=== PATIENT | female | born 1940 | race American Indian/Alaskan Native ===

== ENCOUNTER 2016-08-05 02:34 | Emergency (ER) | payer MEDICARE ==
[2016-08-05] MEDS ORDERED: CATAPRES PO ONE (03:12)
--- NOTE | 2016-08-05 03:29 | Emergency Department Report ---
HPI - General Time Seen by Provider: 08/05/16 03:02 - HPI HPI: Room 9 The patient is a 75-year-old female presenting with a chief complaint of blurred vision. The patient states this evening she felt nervous but then went to sleep. The patient states when she awakened this evening she had blurred vision. Patient denied ever having a headache, chest pain, shortness of breath nausea or vomiting. The patient states the blurred vision has mostly resolved but her vision is still "slightly blurry." The patient otherwise states she feels "all right." The patient has a history of hypertension and states she's been compliant with all of her blood pressure medication Location: Vision Duration: [see above] Quality: Blurry Severity: Moderate Modifying factors: [see above] Context: [see above] Mode of transportation: [not driving] ED Past Medical Hx - Past Medical History Hx Hypertension: Yes (2001) - Surgical History Past Surgical History?: No Hx Appendectomy: Yes Additional Surgical History: Hysterectomy - Family History Family history: no significant - Social History Smoking Status: Never Smoker - Medications Home Medications: Home Medications Medication Instructions Recorded Confirmed Last Taken Type Clonidine HCl [Kapvay] 0.1 mg PO BID 08/05/16 08/05/16 08/04/16 History Metoprolol [Lopressor TAB] 50 mg PO BID 08/05/16 08/05/16 08/04/16 History Pantoprazole [Protonix] 40 mg PO QDAY 08/05/16 08/05/16 08/04/16 History hydrALAZINE [Apresoline TAB] 100 mg PO TID 08/05/16 08/05/16 08/04/16 History ED Review of Systems ROS: Stated complaint: HYPERTENSION Other details as noted in HPI Comment: All other systems reviewed and negative Constitutional: denies: chills, fever Eyes: vision change ENT: denies: ear pain, throat pain Respiratory: denies: cough, shortness of breath, wheezing Cardiovascular: denies: chest pain, palpitations Endocrine: no symptoms reported Gastrointestinal: denies: abdominal pain, nausea, diarrhea Genitourinary: as per HPI Musculoskeletal: denies: back pain, joint swelling, arthralgia Skin: denies: rash, lesions Neurological: denies: headache, weakness, paresthesias Psychiatric: denies: anxiety, depression Hematological/Lymphatic: denies: easy bleeding, easy bruising Physical Exam - Physical Exam Vital Signs: Vital Signs 08/05/16 02:47 Temperature 98.3 F Pulse Rate 80 Respiratory 20 Rate Blood Pressure 209/75 [Right] O2 Sat by Pulse 100 Oximetry Physical Exam: GENERAL: The patient is well-developed well-nourished female lying on stretcher not appearing to be in acute distress. [] HEENT: Normocephalic. Atraumatic. Extraocular motions are intact. Patient has moist mucous membranes. NECK: Supple. No meningitic signs are noted. Trachea midline. CHEST/LUNGS: Clear to auscultation. There is no respiratory distress noted. HEART/CARDIOVASCULAR: Regular. There is no tachycardia. There is no gallop rub or murmur. ABDOMEN: Abdomen is soft, nontender. Patient has normal bowel sounds. There is no abdominal distention. SKIN: There is no rash. There is no edema. There is no diaphoresis. NEURO: The patient is awake, alert, and oriented. The patient is cooperative. The patient has no focal neurologic deficits. The patient has normal speech. Cranial nerves II through XII grossly intact, no drift MUSCULOSKELETAL: There is no evidence of acute injury. ED Course Vital Signs 08/05/16 02:47 Temperature 98.3 F Pulse Rate 80 Respiratory 20 Rate Blood Pressure 209/75 [Right] O2 Sat by Pulse 100 Oximetry - Consultations Consultation #1: 08/05/16 04:17 Nephrology paged- case discussed with Dr. Duggan states she will like the patient's records to look for previous creatinine and call back 08/05/16 04:[address] Duggan-states patient's last creatinine was measured in May 2014 which revealed a creatinine of 3.66. Recommends the patient follow up in the office for further evaluation ED Medical Decision Making - Lab Data Result diagrams: 08/05/16 03:32 08/05/16 03:32 Laboratory Tests 08/05/16 08/05/16 03:32 03:32 WBC 6.0 RBC 3.51 L Hgb 9.1 L Hct 28.1 L MCV 80 MCH 26 L MCHC 33 RDW 16.2 H Plt Count 363 [place] % (Auto) Potato Seed Cutter Sodium 136 L Potassium 3.4 L Chloride 94.3 L Carbon Dioxide 25 Anion Gap 20 BUN 16 Creatinine 4.0 H Estimated GFR 13 BUN/Creatinine Ratio 4.00 Glucose 102 H Calcium 8.2 L Total Creatine Kinase 136 H CK-MB (CK-2) 1.7 CK-MB (CK-2) Rel Index 1.2 Troponin T 0.026 - EKG Data -: EKG Interpreted by Me EKG shows normal: sinus rhythm Rate: normal - EKG Data When compared to previous EKG there are: previous EKG unavailable Interpretation: nonspecific ST-T wave carol ann (T-wave inversions in leads 1 and aVL) - Radiology Data Radiology results: report reviewed (CT head), image reviewed (CT head) CT head (read by radiologist) -there is no evidence of acute intracranial process. Mild atrophy - Differential Diagnosis hypertensive urgency, ICH Critical care attestation.: If time is entered above; I have spent that time in minutes in the direct care of this critically ill patient, excluding procedure time. ED Disposition Clinical Impression: Hypertension, Renal insufficiency Disposition: DC-01 TO HOME OR SELFCARE Is pt being admited?: No Does the pt Need Aspirin: No Condition: Stable Instructions: Hypertension (ED) Additional Instructions: Return to the emergency department immediately should you develop worsening symptoms, fever, inability to tolerate food or liquid or any other concerns. Referrals: TOMÁS BEST MD [Staff Physician] - [facility] Time of Disposition: 05:47
[2016-08-05 03:50] LABS: Hematocrit 28.1 % (30.3-42.9); Hemoglobin 9.1 gm/dl (10.1-14.3); Mean Corpuscular HGB Conc 33 % (30-34); Mean Corpuscular Hemoglobin 26 pg (28-32); Mean Corpuscular Volume 80 fl (79-97); Platelet Count 363 K/mm3 (140-440); Red Blood Count 3.51 M/mm3 (3.65-5.03); Red Cell Distribution Width 16.2 % (13.2-15.2)
--- NOTE | 2016-08-05 04:06 | Cat Scan Report ---
FINAL REPORT PROCEDURE: CT HEAD/BRAIN WO CON TECHNIQUE: Computerized tomography of the head was performed without contrast material. HISTORY: hypertension, blurred vision COMPARISON: No prior studies are available for comparison. FINDINGS: Skull and scalp: Normal. Paranasal sinuses: Normal. Ventricles and subarachnoid spaces: Normal. Cerebrum: No evidence of hemorrhage, acute infarction or mass. Minimal atrophy and periventricular deep white matter change.. Cerebellum and brainstem: No evidence of hemorrhage, acute infarction or mass. Vasculature: Normal. Comments: None. IMPRESSION: There is no evidence of an acute intracranial process. Mild atrophy.
[2016-08-05 04:08] LABS: Creatine Kinase MB 1.7 ng/mL (0.0-4.0)
[2016-08-05 04:09] LABS: Calcium 8.2 mg/dL (8.4-10.2); Chloride 94.3 mmol/L (98-107); Potassium 3.4 mmol/L (3.6-5.0)
[2016-08-05] MEDS ORDERED: APRESOLINE IV ONE (05:00)
[2016-08-05 05:52] LABS: Basophils % (Manual) 0 % (0.0-1.8); Blastocytes % (Manual) 0 %
[2016-08-05 06:04] VITALS: BP 167/66
[2016-08-05 06:17] LABS: Anisocytosis 1+; Diff Status Complete; Platelet Estimate Consistent w Auto
== END 2016-08-05 07:08 | disposition home or self-care (01) ==
LOC: ED 02:34
DX: I10 Essential (primary) hypertension (principal); N28.9 Disorder of kidney and ureter, unspecified; Z90.710 Acquired absence of both cervix and uterus
CPT/HCPCS: 36415; 70450; 80048; 82550; 82553; 84484; 85007; 85025; 96374; 99284; J0360

== ENCOUNTER 2016-08-05 21:34 | Inpatient (IN) | payer MEDICARE ==
[2016-08-05 22:13] LABS: Eosinophils % (Auto) 2.6 % (0.0-4.3); Hematocrit 30.4 % (30.3-42.9); Hemoglobin 9.8 gm/dl (10.1-14.3); Mean Corpuscular HGB Conc 32 % (30-34); Mean Corpuscular Volume 80 fl (79-97); Platelet Count 386 K/mm3 (140-440); Red Blood Count 3.78 M/mm3 (3.65-5.03); White Blood Count 5.9 K/mm3 (4.5-11.0)
[2016-08-05 22:14] LABS: Mean Corpuscular Hemoglobin 26 pg (28-32)
[2016-08-05 22:22] LABS: INR 1.17 (0.87-1.13)
[2016-08-05 22:23] LABS: Partial Thromboplastin Time 36.8 Sec. (24.2-36.6)
[2016-08-05 22:29] LABS: BUN/Creatinine Ratio 3.84; Calcium 8.2 mg/dL (8.4-10.2); Chloride 92.1 mmol/L (98-107); Potassium 3.9 mmol/L (3.6-5.0)
[2016-08-06] MEDS ORDERED: NITRO-BID 2% TP ONE (01:53)
[2016-08-06] MEDS ORDERED: ASPIRIN PO ONE (01:54)
--- NOTE | 2016-08-06 01:56 | Emergency Department Report ---
HPI - General Chief Complaint: Chest Pain Time Seen by Provider: 08/06/16 01:41 - HPI HPI: Room 19 The patient is 75-year-old female presenting with chief complaint of chest pain. The patient was seen by myself yesterday for hypertension and blurred vision. The patient denied chest pain at that time. Patient states this evening at 20:00 while at rest she developed substernal chest pain that was throbbing in nature. Patient states chest pain lasted approximately 2-3 hours. Patient denies shortness of breath, nausea/vomiting or diaphoresis with her chest pain. Patient states her last stress test occurred over 5 years ago and she has never had a cardiac catheterization Location: Chest Duration: [see above] Quality: Throbbing Severity: 0/10 Modifying factors: [see above] Context: [see above] Mode of transportation: [not driving] ED Past Medical Hx - Past Medical History Previous Medical History?: Yes Hx Hypertension: Yes (2001) Hx Renal Disease: Yes (DYALISIS T/ T/ SAT) - Surgical History Past Surgical History?: Yes Hx Appendectomy: Yes Additional Surgical History: Hysterectomy - Family History Family history: no significant - Social History Smoking Status: Never Smoker Substance Use Type: None - Medications Home Medications: Home Medications Medication Instructions Recorded Confirmed Last Taken Type Calcium Carbonate [Calcium] 500 mg PO DAILY 08/05/16 08/05/16 08/05/16 History Clonidine HCl [Kapvay] 0.1 mg PO BID 08/05/16 08/05/16 08/05/16 History Ferrous Sulfate [Feosol] 325 mg PO TID 08/05/16 08/05/16 08/05/16 History Fluticasone [Flonase] 1 spray NS QDAY 08/05/16 08/05/16 08/05/16 History Loratadine [Claritin] 10 mg PO DAILY 08/05/16 08/05/16 08/05/16 History Metoprolol [Lopressor TAB] 50 mg PO BID 08/05/16 08/05/16 08/05/16 History Pantoprazole [Protonix] 40 mg PO QDAY 08/05/16 08/05/16 08/05/16 History hydrALAZINE [Apresoline TAB] 100 mg PO TID 08/05/16 08/05/16 08/05/16 History ED Review of Systems ROS: Stated complaint: HIGH BP/CHEST PAIN Other details as noted in HPI Comment: All other systems reviewed and negative Constitutional: denies: chills, fever Eyes: denies: eye pain, eye discharge, vision change ENT: denies: ear pain, throat pain Respiratory: denies: cough, shortness of breath, wheezing Cardiovascular: chest pain. denies: palpitations Endocrine: no symptoms reported Gastrointestinal: denies: abdominal pain, nausea, diarrhea Genitourinary: denies: urgency, dysuria, discharge Musculoskeletal: denies: back pain, joint swelling, arthralgia Skin: denies: rash, lesions Neurological: denies: headache, weakness, paresthesias Psychiatric: denies: anxiety, depression Hematological/Lymphatic: denies: easy bleeding, easy bruising Physical Exam - Physical Exam Vital Signs: Vital Signs 08/05/16 08/05/16 08/05/16 21:50 23:29 23:30 Temperature 99.1 F Pulse Rate 75 73 73 Respiratory 18 17 13 Rate Blood Pressure 190/82 Blood Pressure [Right] O2 Sat by Pulse 98 100 Oximetry 08/05/16 08/05/16 08/05/16 23:40 23:41 23:42 Temperature Pulse Rate 72 73 73 Respiratory 13 18 Rate Blood Pressure 215/82 Blood Pressure 215/82 [Right] O2 Sat by Pulse 99 99 Oximetry 08/05/16 08/06/16 08/06/16 23:50 00:00 00:10 Temperature Pulse Rate 74 65 73 Respiratory 17 16 15 Rate Blood Pressure 215/82 179/72 179/72 Blood Pressure [Right] O2 Sat by Pulse 99 96 98 Oximetry 08/06/16 08/06/16 08/06/16 00:20 00:30 00:40 Temperature Pulse Rate 63 65 65 Respiratory 15 15 16 Rate Blood Pressure 179/72 164/62 164/62 Blood Pressure [Right] O2 Sat by Pulse 97 95 96 Oximetry 08/06/16 08/06/16 08/06/16 00:50 01:00 01:10 Temperature Pulse Rate 78 74 76 Respiratory 10 L 17 10 L Rate Blood Pressure 164/62 208/83 208/83 Blood Pressure [Right] O2 Sat by Pulse 98 96 98 Oximetry 08/06/16 08/06/16 01:20 01:30 Temperature Pulse Rate 68 67 Respiratory 15 16 Rate Blood Pressure 208/83 169/75 Blood Pressure [Right] O2 Sat by Pulse 97 94 Oximetry Physical Exam: GENERAL: The patient is well-developed well-nourished female lying on stretcher not appearing to be in acute distress. [] HEENT: Normocephalic. Atraumatic. Extraocular motions are intact. Patient has moist mucous membranes. NECK: Supple. Trachea midline CHEST/LUNGS: Clear to auscultation. There is no respiratory distress noted. HEART/CARDIOVASCULAR: Regular. There is no tachycardia. There is no gallop rub or murmur. ABDOMEN: Abdomen is soft, nontender. Patient has normal bowel sounds. There is no abdominal distention. SKIN: There is no rash. There is no edema. There is no diaphoresis. NEURO: The patient is awake, alert, and oriented. The patient is cooperative. The patient has normal speech MUSCULOSKELETAL: There is no evidence of acute injury. ED Course Vital Signs 08/05/16 08/05/16 08/05/16 21:50 23:29 23:30 Temperature 99.1 F Pulse Rate 75 73 73 Respiratory 18 17 13 Rate Blood Pressure 190/82 Blood Pressure [Right] O2 Sat by Pulse 98 100 Oximetry 08/05/16 08/05/16 08/05/16 23:40 23:41 23:42 Temperature Pulse Rate 72 73 73 Respiratory 13 18 Rate Blood Pressure 215/82 Blood Pressure 215/82 [Right] O2 Sat by Pulse 99 99 Oximetry 08/05/16 08/06/16 08/06/16 23:50 00:00 00:10 Temperature Pulse Rate 74 65 73 Respiratory 17 16 15 Rate Blood Pressure 215/82 179/72 179/72 Blood Pressure [Right] O2 Sat by Pulse 99 96 98 Oximetry 08/06/16 08/06/16 08/06/16 00:20 00:30 00:40 Temperature Pulse Rate 63 65 65 Respiratory 15 15 16 Rate Blood Pressure 179/72 164/62 164/62 Blood Pressure [Right] O2 Sat by Pulse 97 95 96 Oximetry 08/06/16 08/06/16 08/06/16 00:50 01:00 01:10 Temperature Pulse Rate 78 74 76 Respiratory 10 L 17 10 L Rate Blood Pressure 164/62 208/83 208/83 Blood Pressure [Right] O2 Sat by Pulse 98 96 98 Oximetry 08/06/16 08/06/16 01:20 01:30 Temperature Pulse Rate 68 67 Respiratory 15 16 Rate Blood Pressure 208/83 169/75 Blood Pressure [Right] O2 Sat by Pulse 97 94 Oximetry ED Medical Decision Making - Lab Data Result diagrams: 08/05/16 21:58 08/05/16 21:58 Laboratory Tests 08/05/16 08/05/16 08/05/16 21:58 21:58 21:58 WBC 5.9 RBC 3.78 Hgb 9.8 L Hct 30.4 MCV 80 MCH 26 L MCHC 32 RDW 16.0 H Plt Count 386 Lymph % (Auto) 12.2 L [place] % (Auto) 14.8 H Eos % (Auto) 2.6 Baso % (Auto) 1.0 Lymph # 0.7 L [place] # 0.9 H Eos # 0.2 Baso # 0.1 Seg Neutrophils % 69.4 Seg Neutrophils # 4.1 PT 14.8 INR 1.17 H APTT 36.8 H Sodium 134 L Potassium 3.9 Chloride 92.1 L Carbon Dioxide 24 Anion Gap 22 BUN 20 H Creatinine 5.2 H Estimated GFR 10 BUN/Creatinine Ratio 3.84 Glucose 103 H Calcium 8.2 L Troponin T 0.029 - EKG Data -: EKG Interpreted by Me EKG shows normal: sinus rhythm Rate: normal - EKG Data When compared to previous EKG there are: no significant change Interpretation: nonspecific ST-T wave carol ann (T-wave inversions in leads 1 and aVL which were also present on the EKG dated 08/05/2016 at 02:39) - Radiology Data Radiology results: image reviewed (chest x-ray) interpreted by me: Chest [id number]. No focal infiltrates, no pneumothorax - Differential Diagnosis ACS, pericarditis, GERD Critical care attestation.: If time is entered above; I have spent that time in minutes in the direct care of this critically ill patient, excluding procedure time. ED Disposition Clinical Impression: Chest pain, End stage renal disease Disposition: OP ADMIT IP TO THIS HOSP Is pt being admited?: Yes Does the pt Need Aspirin: Yes Condition: Fair Instructions: Chest Pain (ED) Referrals: PRIMARY CARE, [Primary Care Provider] - 3-5 Days Time of Disposition: 02:08 (hospitalist paged)
--- NOTE | 2016-08-06 07:26 | Admit Criteria Form ---
Admission Criteria Documentation: CHEST PAIN Clinical Indications for Admission to Inpatient Care (Place 'X' for any and all applicable criteria): Admission is indicated for chest pain and ANY ONE of the following(1)(2)(3)(4)(5 ): [ ]I. Angina with acute coronary syndrome (Also use Myocardial Infarction or Angina guideline) [ ]II. Hemodynamic instability [ ]III. Angina needing acute intervention as indicated by ALL of the following( 11)(12): [ ]a) Unstable angina is present as indicated by angina that is ANY ONE of the following: [ ]i) New onset [ ]ii) Nocturnal [ ]iii) Prolonged at rest [ ]iv) Progressive [ ]b) Angina warrants acute intervention as indicated by ANY ONE of the following: [ ]i) Recurrent angina (e.g, not responding as previously to treatment) [ ]ii) Angina at rest or with low-level activities despite initial medical therapy [ ]iii) New or presumably new ST-segment depression on ECG [ ]iv) Signs or symptoms of heart failure (eg, dyspnea, pulmonary edema) [ ]v) New or worsening mitral regurgitation [ ]vi) Hemodynamic instability [ ]vii) Dangerous arrhythmia (eg, sustained ventricular tachycardia) [ ]viii) History of percutaneous coronary intervention within 6 months [ ]ix) History of coronary artery bypass graft surgery [ ]x) KALEN risk score of 2 or greater[A] [ ]xi) History of Diabetes(14) [ ]xii) High-risk cardiac ischemia findings on noninvasive testing (e.g, echocardiogram, treadmill testing, nuclear scan) [ ]xiii) Chronic renal insufficiency (ie, estimated GFR less than 60 mL/min/1.732m) [ ]xiv) Left ventricular ejection fraction less than 40% [ ]IV. Evidence of SC (eg, cardiac biomarkers positive, ST-segment elevation on ECG) also use Myocardial Infarction Criteria Form. [ ]V. Pulmonary edema [ ]. Respiratory distress [ ]VII. Chest pain indicative of serious diagnosis other than coronary artery disease (eg, aortic dissection) [ ]VIII. Contraindications and/or Inappropriate clinical situations for Observational Care in patients with Chest Pain, when ANY ONE of the following is required: [ ]a) Patient with risk factor for pulmonary embolism, acute coronary syndrome and myocardial infarction (18) [ ]b) Patient with Pulmonary embolism require an average LOS of 4.3 days, therefore emergency department observation management is inappropriate 18,23 [ ]c) Painful condition/s in the elderly, have the highest rate of recidivism after emergency department observation management (10.8%) 20,21,22 [ ]d) Elevated cardiac biomarker requires intensive and exhaustive care (19) [ X]IX. General contraindications and/or Inappropriate clinical situations for Observational Care in patients with Chest Pain, when ANY ONE of the following is required: [ X]a) Prediction of prolongation of LOS based on ANY ONE of the following may be considered as a contraindication for observational care 2, 3, 4, 5, 6, 7, 8, 9, 10, 11 [X ]i) Age > 65 yrs. [ ]ii) Patient arriving by ambulance [ ]iii) Patient with high acuity [ ]iv) Patient requiring vital sign monitoring [ ]v) Patient on IV medication [X ]b) Systolic blood pressures 180mmHg 3,12 [ ]c) Patient with altered mental status including delirium and other alteration of consciousness, (3) [ ]d) Patient whose discharge disposition will be to a detention home or rehabilitation home should not be managed in Emergency Department Observation Unit. CMS rule requires 3 days hospital stay before such placement. 3,13 [ ]e) Patient with failure to thrive due to broad array of etiologies 3,16,17 [ ]f) Inability to ambulate 3,14 Extended stay beyond goal length of stay may be needed for (1)(28): [ ]a) Specific condition diagnosed after evaluation (eg, pulmonary embolism, aortic dissection) [ ]b) Unstable angina [ ]c) Continued suspicion of acute coronary syndrome with inability to complete needed cardiac evaluation (eg, patient clinically unable to undergo stress testing) [ ]d) Myocardial infarction (Contents from ANGINA and CHEST PAIN clinical indications for admission to inpatient care have been integrated in this form) The original [employer] content created by [employer] has been revised. The portions of the content which have been revised are identified through the use of italic text or in bold, and [employer] [facility] has neither reviewed nor approved the modified material. All other unmodified content is copyright [employer]. Please see references footnoted in the original [employer] [facility] edition 2016 Admission Criteria Met: Yes
[2016-08-06] MEDS ORDERED: ZOFRAN IV PRN (08:09)
[2016-08-06] MEDS ORDERED: SODIUM CHLORIDE FLUSH SYRINGE 10 ML IV PRN (08:09)
[2016-08-06] MEDS ORDERED: MILK OF MAGNESIA PO PRN (08:09)
[2016-08-06] MEDS ORDERED: TYLENOL PO PRN (08:09)
[2016-08-06] MEDS ORDERED: DULCOLAX PR PRN (08:09)
--- NOTE | 2016-08-06 08:45 | XRay Report ---
AP CHEST : 08/06/16 CLINICAL: Chest pain. COMPARISON:None FINDINGS: The heart is greatly enlarged. Normal pulmonary vessels. The lungs are normally expanded and clear. No tubes or lines. The bones and soft tissues are normal. IMPRESSION: Cardiomegaly but no CHF.
[2016-08-06 09:17] LABS: Creatine Kinase MB 1.8 ng/mL (0.0-4.0)
[2016-08-06] MEDS ORDERED: APRESOLINE IV PRN (09:19)
--- NOTE | 2016-08-06 09:55 | History and Physical Report ---
History of Present Illness Date of examination: 08/06/16 Date of admission: 08/06/16 Chief complaint: Chest pains History of present illness: 75-year-old -[place] female presented to the ED with non-radiating chest pain. Patient reported that her chest pain started yesterday in the midsternal area, non-radiating, dull pain 4 of 10 on scale of 0/10. Patient denied fever, chills, nausea, vomiting, shortness of breath, headache, abdominal pain. Patient's past medical history End-Stage Renal Disease on HD Wednesday//Wednesday, hypertension, appendectomy, hysterectomy. Past History Past Medical History: ESRD, hypertension Past Surgical History: appendectomy, hysterectomy Social history: lives with family, full code. denies: smoking, alcohol abuse Family history: cancer, diabetes, hypertension Medications and Allergies Allergies Allergy/AdvReac Type Severity Reaction Status Date / Time No Known Allergies Allergy Unverified 03/05/14 13:55 Home Medications Medication Instructions Recorded Confirmed Last Taken Type Calcium Carbonate [Calcium] 500 mg PO DAILY 08/05/16 08/05/16 08/05/16 History Clonidine HCl [Kapvay] 0.1 mg PO BID 08/05/16 08/05/16 08/05/16 History Ferrous Sulfate [Feosol] 325 mg PO TID 08/05/16 08/05/16 08/05/16 History Fluticasone [Flonase] 1 spray NS QDAY 08/05/16 08/05/16 08/05/16 History Loratadine [Claritin] 10 mg PO DAILY 08/05/16 08/05/16 08/05/16 History Metoprolol [Lopressor TAB] 50 mg PO BID 08/05/16 08/05/16 08/05/16 History Pantoprazole [Protonix] 40 mg PO QDAY 08/05/16 08/05/16 08/05/16 History hydrALAZINE [Apresoline TAB] 100 mg PO TID 08/05/16 08/05/16 08/05/16 History Active Meds: Active Medications Acetaminophen (Tylenol) 650 mg PO Q4H PRN PRN Reason: Pain MILD(1-3)/Fever >100.5/MOREAU Bisacodyl (Dulcolax) 10 mg [place] QDAY PRN PRN Reason: Constipation unrelieved by MOM Calcium Carbonate/Glycine (Oscal) 500 mg PO DAILY [facility] Ferrous Sulfate (Feosol) 325 mg PO TID [facility] Fluticasone Propionate (Flonase) mcg NS QDAY [facility] Hydralazine HCl (Apresoline) 20 mg IV Q6H PRN PRN Reason: for BP greater than 160 Hydralazine HCl (Apresoline) 100 mg PO TID [facility] Loratadine (Claritin) 10 mg PO DAILY [facility] Magnesium Hydroxide (Milk Of Magnesia) 30 ml PO Q4H PRN PRN Reason: Constipation Metoprolol Tartrate (Lopressor) 50 mg PO BID [facility] Miscellaneous Medication (Clonidine Hcl [Kapvay]) 0.1 mg PO BID [facility] Ondansetron HCl (Zofran) 4 mg IV Q8H PRN PRN Reason: N/V unrelieved by Reglan Pantoprazole Sodium (Protonix) 40 mg PO QDAY [facility] Sodium Chloride (Sodium Chloride Flush Syringe 10 Ml) 10 ml IV PRN PRN PRN Reason: LINE FLUSH Review of Systems Constitutional: no weight loss, no weight gain, no fever, no chills Eyes: bilateral: blurred vision Ears, nose, mouth and throat: no nasal congestion, no nasal discharge Breasts: normal Cardiovascular: chest pain, no syncope, no shortness of breath Respiratory: no cough with sputum, no congestion Gastrointestinal: no abdominal pain, no nausea, no vomiting, no diarrhea, no constipation Genitourinary Female: no dyspareunia, no urge incontinence Musculoskeletal: other (bilateral toes tingling) Integumentary: no rash, no sores, no wounds Neurological: no head injury Psychiatric: no anxiety, no suicidal ideation, no depression Endocrine: no cold intolerance Exam - Constitutional Vitals: Temp Pulse Resp BP Pulse Ox 99.1 F 71 16 181/69 97 08/05/16 21:50 08/06/16 07:50 08/06/16 07:50 08/06/16 07:50 08/06/16 07:50 General appearance: Present: no acute distress, well-nourished - EENT Eyes: Present: PERRL ENT: hearing intact, clear oral mucosa - Neck Neck: Present: supple, normal ROM - Respiratory Respiratory effort: normal Respiratory: bilateral: CTA - Cardiovascular Rhythm: regular Heart Sounds: Present: S1 & S2. Absent: rub, click - Extremities Extremities: pulses symmetrical, No edema Peripheral Pulses: within normal limits - Abdominal General gastrointestinal: Present: soft, non-tender, non-distended, normal bowel sounds Female genitourinary: Present: normal - Integumentary Integumentary: Present: clear, warm, dry - Musculoskeletal Musculoskeletal: strength equal bilaterally - Psychiatric Psychiatric: appropriate mood/affect, intact judgment & insight - Neurologic Neurologic: CNII-XII intact, moves all extremities - Allied Health Allied health notes reviewed: nursing Results - Labs CBC & Chem 7: 08/05/16 21:58 08/05/16 21:58 Labs: Laboratory Last Values WBC 5.9 K/mm3 (4.5-11.0) 08/05/16 21:58 RBC 3.78 M/mm3 (3.65-5.03) 08/05/16 21:58 Hgb 9.8 gm/dl (10.1-14.3) L 08/05/16 21:58 Hct 30.4 % (30.3-42.9) 08/05/16 21:58 MCV 80 fl (79-97) 08/05/16 21:58 MCH 26 pg (28-32) L 08/05/16 21:58 MCHC 32 % (30-34) 08/05/16 21:58 RDW 16.0 % (13.2-15.2) H 08/05/16 21:58 Plt Count 386 K/mm3 (140-440) 08/05/16 21:58 Lymph % (Auto) 12.2 % (13.4-35.0) L 08/05/16 21:58 [place] % (Auto) 14.8 % (0.0-7.3) H 08/05/16 21:58 Eos % (Auto) 2.6 % (0.0-4.3) 08/05/16 21:58 Baso % (Auto) 1.0 % (0.0-1.8) 08/05/16 21:58 Lymph # 0.7 K/mm3 (1.2-5.4) L 08/05/16 21:58 [place] # 0.9 K/mm3 (0.0-0.8) H 08/05/16 21:58 Eos # 0.2 K/mm3 (0.0-0.4) 08/05/16 21:58 Baso # 0.1 K/mm3 (0.0-0.1) 08/05/16 21:58 Seg Neutrophils % 69.4 % (40.0-70.0) 08/05/16 21:58 Seg Neutrophils # 4.1 K/mm3 (1.8-7.7) 08/05/16 21:58 PT 14.8 Sec. (12.2-14.9) 08/05/16 21:58 INR 1.17 (0.87-1.13) H 08/05/16 21:58 APTT 36.8 Sec. (24.2-36.6) H 08/05/16 21:58 Sodium 134 mmol/L (137-145) L 08/05/16 21:58 Potassium 3.9 mmol/L (3.6-5.0) 08/05/16 21:58 Chloride 92.1 mmol/L (98-107) L 08/05/16 21:58 Carbon Dioxide 24 mmol/L (22-30) 08/05/16 21:58 Anion Gap 22 mmol/L 08/05/16 21:58 BUN 20 mg/dL (7-17) H 08/05/16 21:58 Creatinine 5.2 mg/dL (0.7-1.2) H 08/05/16 21:58 Estimated GFR 10 ml/min 08/05/16 21:58 BUN/Creatinine Ratio 3.84 % 08/05/16 21:58 Glucose 103 mg/dL (65-100) H 08/05/16 21:58 POC Glucose 82 (70-105) 08/06/16 09:29 Calcium 8.2 mg/dL (8.4-10.2) L 08/05/16 21:58 Total Creatine Kinase 125 units/L (30-135) 08/06/16 08:44 CK-MB (CK-2) 1.8 ng/mL (0.0-4.0) 08/06/16 08:44 CK-MB (CK-2) Rel Index 1.4 (0-4) 08/06/16 08:44 Troponin T 0.018 ng/mL (0.00-0.029) 08/06/16 08:44 - Imaging and Cardiology EKG: image reviewed (No acute findings) Chest x-ray: image reviewed (Showed Cardiomegaly) Assessment and Plan Assessment and plan: 75-year-old -[place] female presented to the ED with non-radiating chest pain. Patient reported that her chest pain started yesterday in the midsternal area, non-radiating, dull pain 4 of 10 on scale of 0/10. Patient denied fever, chills, nausea, vomiting, shortness of breath, headache, abdominal pain. Patient's past medical history End-Stage Renal Disease on HD Wednesday//Wednesday, hypertension, appendectomy hysterectomy. On exam patient is alert oriented 3 complaint of blurry vision that also started yesterday along with the chest pain, left upper extremity AV fistula positive bruit noted. 1. Chest pain- EKG and chest x-ray obtained in the ER, consult cardiology, stress test ordered, serial Cardiac enzyme 2. Acute on chronic ESRD - HD on , consult nephrology 3. Hyponatremia- follow-up BMP. 4. Hypertension-Continue home meds, Monitor BP, IV hydralazine ordered PRN while in the hospital 5. DVT prophylaxis- Heparin SQ ordered Advance Directives: No (Full code) VTE prophylaxis?: Chemical Plan of care discussed with patient/family: Yes
[2016-08-06] MEDS ORDERED: NON-FORMULARY (Clonidine Hcl [Kapvay] 0.1 MG) PO SCH (10:00)
[2016-08-06] MEDS: LOPRESSOR PO SCH ×2 (11:04→21:34)
[2016-08-06] MEDS ORDERED: LEXISCAN IV ONE ×2 (11:16→12:02)
[2016-08-06] MEDS: OSCAL PO SCH (13:06)
[2016-08-06] MEDS: CLARITIN PO SCH (13:06)
[2016-08-06] MEDS: FLONASE NS SCH (13:08)
[2016-08-06] MEDS: PROTONIX PO SCH (13:36)
--- NOTE | 2016-08-06 14:21 | Consultation ---
History of Present Illness - Reason for Consult Consult date: 08/06/16 end stage renal disease - History of Present Illness patient with h/o ESRD on HD every TTS, she recently started on HD 1 week ago, recievd her last treatment , she came to the ED for worsening chest pain for the last 24 hours. in the ED EKG was negative for MS, serial troponin were negative. renal consult requested for HD management Past History Past Medical History: ESRD, hypertension Past Surgical History: appendectomy, hysterectomy Social history: lives with family, full code. denies: smoking, alcohol abuse Family history: cancer, diabetes, hypertension Medications and Allergies Allergies Allergy/AdvReac Type Severity Reaction Status Date / Time No Known Allergies Allergy Unverified 03/05/14 13:55 Home Medications Medication Instructions Recorded Confirmed Last Taken Type Calcium Carbonate [Calcium] 500 mg PO DAILY 08/05/16 08/05/16 08/05/16 History Clonidine HCl [Kapvay] 0.1 mg PO BID 08/05/16 08/05/16 08/05/16 History Ferrous Sulfate [Feosol] 325 mg PO TID 08/05/16 08/05/16 08/05/16 History Fluticasone [Flonase] 1 spray NS QDAY 08/05/16 08/05/16 08/05/16 History Loratadine [Claritin] 10 mg PO DAILY 08/05/16 08/05/16 08/05/16 History Metoprolol [Lopressor TAB] 50 mg PO BID 08/05/16 08/05/16 08/05/16 History Pantoprazole [Protonix] 40 mg PO QDAY 08/05/16 08/05/16 08/05/16 History hydrALAZINE [Apresoline TAB] 100 mg PO TID 08/05/16 08/05/16 08/05/16 History Active Meds: Active Medications Acetaminophen (Tylenol) 650 mg PO Q4H PRN PRN Reason: Pain MILD(1-3)/Fever >100.5/MOREAU Bisacodyl (Dulcolax) 10 mg [place] QDAY PRN PRN Reason: Constipation unrelieved by MOM Calcium Carbonate/Glycine (Oscal) 500 mg PO DAILY [facility] Last Admin: 08/06/16 13:06 Dose: 500 mg Clonidine HCl (Catapres) 0.1 mg PO BID [facility] Ferrous Sulfate (Feosol) 325 mg PO TID [facility] Fluticasone Propionate (Flonase) 100 mcg NS QDAY [facility] Last Admin: 08/06/16 13:08 Dose: Not Given Heparin Sodium (Porcine) (Heparin) 5,000 unit SUB-Q Q12HR [facility] Hydralazine HCl (Apresoline) 20 mg IV Q6H PRN PRN Reason: for BP greater than 160 Hydralazine HCl (Apresoline) 100 mg PO TID [facility] Loratadine (Claritin) 10 mg PO DAILY [facility] Last Admin: 08/06/16 13:06 Dose: 10 mg Magnesium Hydroxide (Milk Of Magnesia) 30 ml PO Q4H PRN PRN Reason: Constipation Metoprolol Tartrate (Lopressor) 50 mg PO BID [facility] Last Admin: 08/06/16 11:04 Dose: 50 mg Ondansetron HCl (Zofran) 4 mg IV Q8H PRN PRN Reason: N/V unrelieved by Reglan Pantoprazole Sodium (Protonix) 40 mg PO QDAY [facility] Last Admin: 08/06/16 13:36 Dose: 40 mg Sodium Chloride (Sodium Chloride Flush Syringe 10 Ml) 10 ml IV PRN PRN PRN Reason: LINE FLUSH Review of Systems All systems: negative (weakness, chest pain) Exam - Vital Signs Vital signs: Vital Signs Temp Pulse Resp BP Pulse Ox 99.1 F 75 18 190/82 98 08/05/16 21:50 08/05/16 21:50 08/05/16 21:50 08/05/16 21:50 08/05/16 21:50 - General Appearance General appearance: cachectic EENT: ATNC, PERRL, mucous membranes moist Neck: Present: neck supple Respiratory: Clear to Ascultation Heart: regular, S1S2 Gastrointestinal: Present: normoactive bowel sounds. Absent: tenderness, distended, masses Integumentary: no rash, warm and dry Neurologic: no focal deficit, no asterixis, alert and oriented x3 Musculoskeletal: Present: other (no edema in BLE) Psychiatric: mood/affect appropriate, cooperative Results - Lab Results 08/05/16 21:58 08/05/16 21:58 Most recent lab results Calcium 8.2 mg/dL (8.4-10.2) L 08/05/16 21:58 Assessment and Plan - Patient Problems (1) Chest pain Current Visit: Yes Status: Acute Qualifiers: Chest pain type: C Ischemic chest pain type: I Plan to address problem: cardiology consult is pending stress test ordered negative troponin (2) End stage renal disease Current Visit: Yes Status: Acute Plan to address problem: current access is L AVF with + thrill and bruit HD today for clearance and volume removal will asses HD needs daily strict I&O daily weights renal diet (3) Anemia in chronic kidney disease (CKD) Current Visit: Yes Status: Acute Qualifiers: Chronic kidney disease stage: C Plan to address problem: Epogen with HD when BP is more controlled (4) Secondary hyperparathyroidism (of renal origin) Current Visit: Yes Status: Acute Plan to address problem: phos in AM cont calcium carbonate (5) Hypertension Current Visit: No Status: Acute Qualifiers: Hypertension type: H Plan to address problem: UF with HD will adjust BP meds as needed
--- NOTE | 2016-08-06 15:03 | Consultation ---
History of Present Illness Consult date: 08/06/16 Consult reason: chest pain History of present illness: The patient is a 75-year-old woman who has end-stage renal disease and chronic hypertension. She is reported to have been recently initiated into hemodialysis. She was admitted to the emergency room with chest pain. EKG was sinus rhythm with nonspecific ST and T-wave abnormalities, no acute ischemic changes. Cardiac enzymes were negative. Cardiac consultation was requested. A Persantin thallium stress test done by the medical team today was completed. The myocardial perfusion study was normal with no ischemic defects. Left ventricle systolic function was well-preserved on gated SPECT. The patient is a poor historian, denies any prior cardiac history or significant prior cardiac workup. The medical records in the hospital did not report any significant prior cardiac workup. Past History Past Medical History: ESRD, hypertension Past Surgical History: appendectomy, hysterectomy Social history: lives with family, full code. denies: smoking, alcohol abuse Family history: cancer, diabetes, hypertension Medications and Allergies Allergies Allergy/AdvReac Type Severity Reaction Status Date / Time No Known Allergies Allergy Unverified 03/05/14 13:55 Home Medications Medication Instructions Recorded Confirmed Last Taken Type Calcium Carbonate [Calcium] 500 mg PO DAILY 08/05/16 08/05/16 08/05/16 History Clonidine HCl [Kapvay] 0.1 mg PO BID 08/05/16 08/05/16 08/05/16 History Ferrous Sulfate [Feosol] 325 mg PO TID 08/05/16 08/05/16 08/05/16 History Fluticasone [Flonase] 1 spray NS QDAY 08/05/16 08/05/16 08/05/16 History Loratadine [Claritin] 10 mg PO DAILY 08/05/16 08/05/16 08/05/16 History Metoprolol [Lopressor TAB] 50 mg PO BID 08/05/16 08/05/16 08/05/16 History Pantoprazole [Protonix] 40 mg PO QDAY 08/05/16 08/05/16 08/05/16 History hydrALAZINE [Apresoline TAB] 100 mg PO TID 08/05/16 08/05/16 08/05/16 History Active Meds: Active Medications Acetaminophen (Tylenol) 650 mg PO Q4H PRN PRN Reason: Pain MILD(1-3)/Fever >100.5/MOREAU Bisacodyl (Dulcolax) 10 mg [place] QDAY PRN PRN Reason: Constipation unrelieved by MOM Calcium Carbonate/Glycine (Oscal) 500 mg PO DAILY [facility] Last Admin: 08/06/16 13:06 Dose: 500 mg Clonidine HCl (Catapres) 0.1 mg PO BID [facility] Ferrous Sulfate (Feosol) 325 mg PO TID [facility] Fluticasone Propionate (Flonase) 100 mcg NS QDAY [facility] Last Admin: 08/06/16 13:08 Dose: Not Given Heparin Sodium (Porcine) (Heparin) 5,000 unit SUB-Q Q12HR [facility] Hydralazine HCl (Apresoline) 20 mg IV Q6H PRN PRN Reason: for BP greater than 160 Hydralazine HCl (Apresoline) 100 mg PO TID [facility] Loratadine (Claritin) 10 mg PO DAILY [facility] Last Admin: 08/06/16 13:06 Dose: 10 mg Magnesium Hydroxide (Milk Of Magnesia) 30 ml PO Q4H PRN PRN Reason: Constipation Metoprolol Tartrate (Lopressor) 50 mg PO BID [facility] Last Admin: 08/06/16 11:04 Dose: 50 mg Ondansetron HCl (Zofran) 4 mg IV Q8H PRN PRN Reason: N/V unrelieved by Reglan Pantoprazole Sodium (Protonix) 40 mg PO QDAY [facility] Last Admin: 08/06/16 13:36 Dose: 40 mg Sodium Chloride (Sodium Chloride Flush Syringe 10 Ml) 10 ml IV PRN PRN PRN Reason: LINE FLUSH Review of Systems Cardiovascular: chest pain, no orthopnea, no palpitations, no rapid/irregular heart beat, no edema, no syncope, no lightheadedness, no shortness of breath Physical Examination Vital Signs Temp Pulse Resp BP Pulse Ox 99.1 F 75 18 190/82 98 08/05/16 21:50 08/05/16 21:50 08/05/16 21:50 08/05/16 21:50 08/05/16 21:50 General appearance: no acute distress HEENT: Positive: PERRL Neck: Positive: neck supple Cardiac: Positive: Reg Rate and Rhythm Lungs: Positive: Decreased Breath Sounds Neuro: Positive: Grossly Intact Abdomen: Positive: Soft Female genitourinary: deferred Skin: Positive: Clear Extremities: Absent: edema Results 08/05/16 21:58 08/05/16 21:58 Cardiac Enzymes 08/06/16 Range/Units 08:44 CK-MB (CK-2) 1.8 (0.0-4.0) ng/mL EKG interpretations - Telemetry EKG Rhythm: Sinus Rhythm Assessment and Plan - Patient Problems (1) Chest pain Current Visit: Yes Status: Acute Qualifiers: Chest pain type: C Ischemic chest pain type: I Plan to address problem: Chest pain is atypical, EKGs, cardiac enzymes and thallium stress test all negative. No further cardiac workup is indicated at this time, patient is stable for cardiac discharge. Return to emergency room if any recurrent chest pain, outpatient cardiac follow- up is recommended.
[2016-08-06] MEDS ORDERED: NACL 0.9% 100 ML IV PRN (16:09)
[2016-08-06] MEDS ORDERED: NACL 0.9 (PRIMING MACHINE ONLY DIALYSIS) MC ONE (17:00)
[2016-08-06] MEDS: FEOSOL PO SCH (21:33)
[2016-08-06] MEDS: CATAPRES PO SCH (21:33)
[2016-08-06] MEDS: APRESOLINE PO SCH (21:34)
[2016-08-06] MEDS ORDERED: HEPARIN SUB-Q SCH (22:00)
--- NOTE | 2016-08-07 02:37 | Treadmill Report ---
THALLIUM STRESS TEST LEFT VENTRICLE: Left ventricular chamber size is within normal. Perfusion study demonstrates homogeneous uptake of the tracer in all segments, no significant perfusion defects identified. Gated analysis demonstrates normal left ventricular systolic function, ejection fraction 59%. CONCLUSION: Normal myocardial perfusion study. JOB# [id number] CA/NTS
[2016-08-07] MEDS ORDERED: PERCOCET 5/325 PO PRN (03:31)
[2016-08-07] MEDS ORDERED: NACL 0.9% 1000 ML 1,000 ML ONE (04:09)
[2016-08-07 04:29] LABS: Basophils % (Auto) 0.4 % (0.0-1.8); Eosinophils % (Auto) 0.6 % (0.0-4.3); Mean Corpuscular HGB Conc 33 % (30-34); Mean Corpuscular Hemoglobin 26 pg (28-32); Mean Corpuscular Volume 80 fl (79-97); Platelet Count 319 K/mm3 (140-440); Red Blood Count 2.49 M/mm3 (3.65-5.03); Red Cell Distribution Width 15.9 % (13.2-15.2); White Blood Count 10.7 K/mm3 (4.5-11.0)
[2016-08-07 04:41] LABS: Hematocrit 20.1 % (30.3-42.9); Hemoglobin 6.5 gm/dl (10.1-14.3)
[2016-08-07] MEDS ORDERED: NACL 0.9% 500 ML 500 ML IV ONE (04:49)
--- NOTE | 2016-08-07 04:49 | Event Note ---
Date: 08/07/16 Notified by nurse that patient had rectal bleed Stat H&H was obtained which shows hemoglobin has dropped from 9.8-6.2, patient symptomatic GI is being consulted, Dr. Willoughby notified Transfuse 1 unit of packed red blood cell DC heparin Critical care 35 minutes
[2016-08-07 04:52] LABS: BUN/Creatinine Ratio 4.63; Calcium 7.5 mg/dL (8.4-10.2); Chloride 98.5 mmol/L (98-107); Phosphorous 3.1 mg/dL (2.5-4.5); Potassium 3.6 mmol/L (3.6-5.0)
--- NOTE | 2016-08-07 09:43 | Gastroenterology Consultation ---
<ORI VALLE - Last Filed: 08/07/16 09:45> History of Present Illness - Reason for Consult Consult date: 08/07/16 rectal bleeding Requesting physician: FRANKI NAGEL - History of Present Illness Patient is a 75 y/o female who was admitted for CP. EKG, cardiac enzymes, and stress test all negative. PMH significant for HTN and ESRD on HD. Patient reports having rectal bleeding x 2 episodes yesterday with BM of bright red blood. She denies ever having rectal bleeding in the past or being. She reports having a GI work-up last week (07/29/2016) at [facility] for anemia by Dr. Bills. EGD revealed esophagitis and a small hiatal hernia. Colonoscopy revealed brown diverticulosis, lipoma, small ascending polyp removed, and one 4 cm ascending polyp with a broad base that was unable to be removed. The large polyp was biopsied and marked with Libertad ink. Pathology showed one polyp to be tubular adenoma and the other tubulovillous adenoma. Patient is scheduled for a hemicolectomy at [facility] next week. She reports no signs of active bleeding, CP, or SOB this morning. Also denies abd pain, N/V, hematemesis, diarrhea, melena, or fever. No Fhx of colon CA. Past History Past Medical History: ESRD, hypertension Past Surgical History: appendectomy, hysterectomy Social history: lives with family, full code. denies: smoking, alcohol abuse Family history: cancer, diabetes, hypertension Medications and Allergies Allergies Allergy/AdvReac Type Severity Reaction Status Date / Time No Known Allergies Allergy Unverified 03/05/14 13:55 Home Medications Medication Instructions Recorded Confirmed Last Taken Type Calcium Carbonate [Calcium] 500 mg PO DAILY 08/05/16 08/05/16 08/05/16 History Clonidine HCl [Kapvay] 0.1 mg PO BID 08/05/16 08/05/16 08/05/16 History Ferrous Sulfate [Feosol] 325 mg PO TID 08/05/16 08/05/16 08/05/16 History Fluticasone [Flonase] 1 spray NS QDAY 08/05/16 08/05/16 08/05/16 History Loratadine [Claritin] 10 mg PO DAILY 08/05/16 08/05/16 08/05/16 History Metoprolol [Lopressor TAB] 50 mg PO BID 08/05/16 08/05/16 08/05/16 History Pantoprazole [Protonix] 40 mg PO QDAY 08/05/16 08/05/16 08/05/16 History hydrALAZINE [Apresoline TAB] 100 mg PO TID 08/05/16 08/05/16 08/05/16 History Active Meds: Active Medications Acetaminophen (Tylenol) 650 mg PO Q4H PRN PRN Reason: Pain MILD(1-3)/Fever >100.5/MOREAU Bisacodyl (Dulcolax) 10 mg W[place] QDAY PRN PRN Reason: Constipation unrelieved by [facility] Calcium Carbonate/Glycine (Oscal) 500 mg PO DAILY [facility] Last Admin: 08/06/16 13:06 Dose: 500 mg Clonidine HCl (Catapres) 0.1 mg PO BID [facility] Last Admin: 08/06/16 21:33 Dose: 0.1 mg Ferrous Sulfate (Feosol) 325 mg PO TID [facility] Last Admin: 08/06/16 21:33 Dose: 325 mg Fluticasone Propionate (Flonase) 100 mcg NS QDAY [facility] Last Admin: 08/06/16 13:08 Dose: Not Given Hydralazine HCl (Apresoline) 20 mg IV Q6H PRN PRN Reason: for BP greater than 160 Hydralazine HCl (Apresoline) 100 mg PO TID [facility] Last Admin: 08/06/16 21:34 Dose: 100 mg Sodium Chloride (Nacl 0.9%) 100 mls @ 999 mls/hr IV BILLY PRN PRN Reason: Hypotension Loratadine (Claritin) 10 mg PO DAILY [facility] Last Admin: 08/06/16 13:06 Dose: 10 mg Magnesium Hydroxide (Milk Of Magnesia) 30 ml PO Q4H PRN PRN Reason: Constipation Metoprolol Tartrate (Lopressor) 50 mg PO BID [facility] Last Admin: 08/06/16 21:34 Dose: 50 mg Ondansetron HCl (Zofran) 4 mg IV Q8H PRN PRN Reason: N/V unrelieved by Reglan Oxycodone/Acetaminophen (Percocet 5/325) 1 tab PO Q4H PRN PRN Reason: Pain, Moderate (4-6) Pantoprazole Sodium (Protonix) 40 mg PO QDAY [facility] Last Admin: 08/06/16 13:36 Dose: 40 mg Sodium Chloride (Sodium Chloride Flush Syringe 10 Ml) 10 ml IV PRN PRN PRN Reason: LINE FLUSH Review of Systems - Review of Systems Gastrointestinal: BRBPR Exam - Constitutional Vital Signs: Temp Pulse Resp BP Pulse Ox 98 F 72 20 124/60 98 08/07/16 08:21 08/07/16 08:21 08/07/16 08:21 08/07/16 08:21 08/07/16 08:21 General appearance: no acute distress - EENT Eyes: PERRL, EOM intact ENT: hearing intact - Neck Neck: supple, normal ROM - Respiratory Respiratory: bilateral: CTA - Cardiovascular Rhythm: regular Heart Sounds: Present: S1 & S2 Extremities: No edema - Gastrointestinal General gastrointestinal: Present: soft, non-tender, non-distended, normal bowel sounds - Integumentary Integumentary: Present: warm, dry - Neurologic Neurological: alert and oriented x3 - Psychiatric Psychiatric: appropriate mood/affect, cooperative - Labs CBC & Chem 7: 08/07/16 04:17 08/07/16 04:17 Lab Results: Laboratory Results - last 24 hr 08/06/16 08/06/16 08/06/16 08:44 09:29 14:18 WBC RBC Hgb Hct MCV MCH MCHC RDW Plt Count Lymph % (Auto) Wood % (Auto) Eos % (Auto) Baso % (Auto) Lymph # Wood # Eos # Baso # Seg Neutrophils % Seg Neutrophils # Sodium Potassium Chloride Carbon Dioxide Anion Gap BUN Creatinine Estimated GFR BUN/Creatinine Ratio Glucose POC Glucose 82 Calcium Phosphorus Total Creatine Kinase 125 117 CK-MB (CK-2) 1.8 2.0 CK-MB (CK-2) Rel Index 1.4 1.7 Troponin T 0.018 0.019 Blood Type Antibody Screen PAUL Antibody Screen Crossmatch 08/07/16 08/07/16 08/07/16 04:08 04:17 04:17 WBC 10.7 RBC 2.49 L Hgb 6.5 L D Hct 20.1 L D MCV 80 MCH 26 L MCHC 33 RDW 15.9 H Plt Count 319 Lymph % (Auto) 18.1 Wood % (Auto) 9.4 H Eos % (Auto) 0.6 Baso % (Auto) 0.4 Lymph # 1.9 Wood # 1.0 H Eos # 0.1 Baso # 0.0 Seg Neutrophils % 71.5 H Seg Neutrophils # 7.7 Sodium 140 Potassium 3.6 Chloride 98.5 Carbon Dioxide 27 Anion Gap 18 BUN 19 H Creatinine 4.1 H Estimated GFR 13 BUN/Creatinine Ratio 4.63 Glucose 138 H POC Glucose 154 H Calcium 7.5 L Phosphorus 3.10 Total Creatine Kinase CK-MB (CK-2) CK-MB (CK-2) Rel Index Troponin T Blood Type Antibody Screen PAUL Antibody Screen Crossmatch 08/07/16 04:20 WBC RBC Hgb Hct MCV MCH MCHC RDW Plt Count Lymph % (Auto) Wood % (Auto) Eos % (Auto) Baso % (Auto) Lymph # Wood # Eos # Baso # Seg Neutrophils % Seg Neutrophils # Sodium Potassium Chloride Carbon Dioxide Anion Gap BUN Creatinine Estimated GFR BUN/Creatinine Ratio Glucose POC Glucose Calcium Phosphorus Total Creatine Kinase CK-MB (CK-2) CK-MB (CK-2) Rel Index Troponin T Blood Type B POSITIVE Antibody Screen TNR PAUL Antibody Screen Negative Crossmatch See Detail Assessment and Plan 1. hematochezia 2. CP 3. ESRD on HD -EKG, cardiac enzymes, and stress test all negative -rectal bleeding x 2 episodes yesterday of bright red blood -HGB dropped from 9.8 to 6.5- 1 unit transfused -Post transfusion H&H pending- continue to monitor and transfuse as needed -hold blood thinning medications -colonoscopy 07/29/16 revealed brown diverticulosis, lipoma, ascending polyp removed, and large 4cm ascending polyp too large to removed (bx and marked with ink) -path showed 1 tubular adenoma and 1 tubulovillous adenoma -CEA level was 3- WNL -patient scheduled for hemicolectomy next week at [facility] -etiology of hematochezia unknown at this time, could possibly be a post polypectomy bleed or diverticular bleed -if bleeding continues, will consider a colonoscopy -will follow <DAVION NIÑO - Last Filed: 08/07/16 10:52> Medications and Allergies Active Meds: Active Medications Acetaminophen (Tylenol) 650 mg PO Q4H PRN PRN Reason: Pain MILD(1-3)/Fever >100.5/MOREAU Bisacodyl (Dulcolax) 10 mg WV QDAY PRN PRN Reason: Constipation unrelieved by [facility] Calcium Carbonate/Glycine (Oscal) 500 mg PO DAILY [facility] Last Admin: 08/06/16 13:06 Dose: 500 mg Clonidine HCl (Catapres) 0.1 mg PO BID [facility] Last Admin: 08/06/16 21:33 Dose: 0.1 mg Epoetin Tyrel (Procrit) 10,000 unit IV BILLY PRN PRN Reason: hemodialysis Ferrous Sulfate (Feosol) 325 mg PO TID [facility] Last Admin: 08/06/16 21:33 Dose: 325 mg Fluticasone Propionate (Flonase) 100 mcg NS QDAY [facility] Last Admin: 08/06/16 13:08 Dose: Not Given Hydralazine HCl (Apresoline) 20 mg IV Q6H PRN PRN Reason: for BP greater than 160 Hydralazine HCl (Apresoline) 100 mg PO TID [facility] Last Admin: 08/06/16 21:34 Dose: 100 mg Sodium Chloride (Nacl 0.9%) 100 mls @ 999 mls/hr IV BILLY PRN PRN Reason: Hypotension Sodium Chloride (Nacl 0.9% 500 Ml) 500 mls @ 0 mls/hr IV ONCE NR PRN Reason: As Directed Stop: 08/07/16 14:00 Loratadine (Claritin) 10 mg PO DAILY [facility] Last Admin: 08/06/16 13:06 Dose: 10 mg Magnesium Hydroxide (Milk Of Magnesia) 30 ml PO Q4H PRN PRN Reason: Constipation Metoprolol Tartrate (Lopressor) 50 mg PO BID [facility] Last Admin: 08/06/16 21:34 Dose: 50 mg Ondansetron HCl (Zofran) 4 mg IV Q8H PRN PRN Reason: N/V unrelieved by Reglan Oxycodone/Acetaminophen (Percocet 5/325) 1 tab PO Q4H PRN PRN Reason: Pain, Moderate (4-6) Pantoprazole Sodium (Protonix) 40 mg PO QDAY [facility] Last Admin: 08/06/16 13:36 Dose: 40 mg Sodium Chloride (Sodium Chloride Flush Syringe 10 Ml) 10 ml IV PRN PRN PRN Reason: LINE FLUSH Exam - Constitutional Vital Signs: Temp Pulse Resp BP Pulse Ox 98 F 72 20 124/60 98 08/07/16 08:21 08/07/16 08:21 08/07/16 08:21 08/07/16 08:21 08/07/16 08:21 - Labs CBC & Chem 7: 08/07/16 04:17 08/07/16 04:17 Lab Results: Laboratory Results - last 24 hr 08/06/16 08/07/16 08/07/16 14:18 04:08 04:17 WBC 10.7 RBC 2.49 L Hgb 6.5 L D Hct 20.1 L D MCV 80 MCH 26 L MCHC 33 RDW 15.9 H Plt Count 319 Lymph % (Auto) 18.1 Wood % (Auto) 9.4 H Eos % (Auto) 0.6 Baso % (Auto) 0.4 Lymph # 1.9 Wood # 1.0 H Eos # 0.1 Baso # 0.0 Seg Neutrophils % 71.5 H Seg Neutrophils # 7.7 Sodium Potassium Chloride Carbon Dioxide Anion Gap BUN Creatinine Estimated GFR BUN/Creatinine Ratio Glucose POC Glucose 154 H Calcium Phosphorus Total Creatine Kinase 117 CK-MB (CK-2) 2.0 CK-MB (CK-2) Rel Index 1.7 Troponin T 0.019 Blood Type Antibody Screen PAUL Antibody Screen Crossmatch 08/07/16 08/07/16 04:17 04:20 WBC RBC Hgb Hct MCV MCH MCHC RDW Plt Count Lymph % (Auto) Wood % (Auto) Eos % (Auto) Baso % (Auto) Lymph # Wood # Eos # Baso # Seg Neutrophils % Seg Neutrophils # Sodium 140 Potassium 3.6 Chloride 98.5 Carbon Dioxide 27 Anion Gap 18 BUN 19 H Creatinine 4.1 H Estimated GFR 13 BUN/Creatinine Ratio 4.63 Glucose 138 H POC Glucose Calcium 7.5 L Phosphorus 3.10 Total Creatine Kinase CK-MB (CK-2) CK-MB (CK-2) Rel Index Troponin T Blood Type B POSITIVE Antibody Screen TNR PAUL Antibody Screen Negative Crossmatch See Detail Assessment and Plan - Patient Problems (1) Lower GI bleed Current Visit: Yes Status: Acute Plan to address problem: The patient is most likely bleeding either from a polypectomy site in this setting versus diverticular bleeding. She bled at 3:15 AM and has not passed any further blood. She also reports losing a significant amount of blood from the dialysis catheter site yesterday before bleeding subsided. Not certain whether she received heparin with dialysis, but this should be withheld for a week. Colonoscopy will be planned if she has significant rebleeding. Will plan conservative care otherwise as right hemicolectomy is planned next week. Davion Niño MD [facility]
--- NOTE | 2016-08-07 09:59 | Progress Note ---
Assessment and Plan - Patient Problems (1) Chest pain Current Visit: Yes Status: Acute Qualifiers: Chest pain type: C Ischemic chest pain type: I Plan to address problem: followed by cardiology, no further cardiac work up needed (2) End stage renal disease Current Visit: Yes Status: Acute Plan to address problem: current access is L AVF with + thrill and bruit no indication for HD today will asses HD needs daily no heparin with HD strict I&O daily weights renal diet (3) Anemia in chronic kidney disease (CKD) Current Visit: Yes Status: Acute Qualifiers: Chronic kidney disease stage: C Plan to address problem: s/p 1 units PRBC transfusion GI on board, may need colonoscopy Epogen with HD (4) Secondary hyperparathyroidism (of renal origin) Current Visit: Yes Status: Acute Plan to address problem: cont calcium carbonate (5) Hypertension Current Visit: No Status: Acute Qualifiers: Hypertension type: H Plan to address problem: improved Subjective Date of service: 08/07/16 Principal diagnosis: ESRD Interval history: tolerated HD yesterday, she was transfused one units of blood this AM Objective - Vital Signs Vital signs: Vital Signs - 12hr 08/06/16 08/07/16 08/07/16 22:00 01:14 03:02 Temperature 98.3 F 98.1 F Pulse Rate Pulse Rate [ 86 76 Left] Respiratory 18 20 18 Rate Blood Pressure Blood Pressure 136/82 132/60 [Left Arm] O2 Sat by Pulse 100 97 Oximetry 08/07/16 08/07/16 08/07/16 04:40 06:27 06:42 Temperature 97.9 F 97.8 F 98.3 F Pulse Rate 80 72 Pulse Rate [ 74 Left] Respiratory 20 18 18 Rate Blood Pressure 80/53 93/52 Blood Pressure 118/58 [Left Arm] O2 Sat by Pulse 100 Oximetry 08/07/16 08/07/16 08/07/16 07:12 07:42 08:00 Temperature 98.8 F 98 F 98.6 F Pulse Rate 78 72 Pulse Rate [ 77 Left] Respiratory 18 20 18 Rate Blood Pressure 122/58 124/60 Blood Pressure 115/59 [Left Arm] O2 Sat by Pulse 98 99 100 Oximetry 08/07/16 08/07/16 08/07/16 08:07 08:12 08:21 Temperature 98.2 F 98.4 F 98 F Pulse Rate 74 76 72 Pulse Rate [ Left] Respiratory 20 20 20 Rate Blood Pressure 122/64 120/62 124/60 Blood Pressure [Left Arm] O2 Sat by Pulse 99 99 98 Oximetry - General Appearance General appearance: well-developed, well-nourished EENT: ATNC, PERRL, mucous membranes moist Neck: no JVD, no carotid bruit Respiratory: Present: Clear to Ascultation Cardiology: regular, S1S2 Gastrointestinal: normoactive bowel sounds, no tenderness, no distended, no masses Integumentary: no rash, warm and dry Neurologic: no focal deficit, no asterixis, alert and oriented x3 Musculoskeletal: other (no edema in BLE) Psychiatric: mood/affect appropriate, cooperative - Lab 08/07/16 04:17 08/07/16 04:17 Most recent lab results Calcium 7.5 mg/dL (8.4-10.2) L 08/07/16 04:17 Phosphorus 3.10 mg/dL (2.5-4.5) 08/07/16 04:17
[2016-08-07] MEDS ORDERED: NACL 0.9% 500 ML 500 ML IV NR (10:30)
[2016-08-07] MEDS ORDERED: PROCRIT IV PRN (10:30)
[2016-08-07] MEDS: CATAPRES PO SCH ×2 (10:58→23:19)
[2016-08-07] MEDS: APRESOLINE PO SCH ×4 (10:58→20:49)
[2016-08-07] MEDS: PROTONIX PO SCH (10:59)
[2016-08-07] MEDS: CLARITIN PO SCH (10:59)
[2016-08-07] MEDS: FLONASE NS SCH (10:59)
[2016-08-07] MEDS: LOPRESSOR PO SCH ×2 (10:59→23:20)
[2016-08-07] MEDS: OSCAL PO SCH (10:59)
[2016-08-07] MEDS: FEOSOL PO SCH ×4 (11:00→20:48)
[2016-08-07 12:10] LABS: Hematocrit 24.5 % (30.3-42.9)
--- NOTE | 2016-08-07 12:22 | Progress Note ---
Assessment and Plan Chest pain, atypical no ischemia, EF 59% on MPI this admission Acute GI bleed s/p blood transfusion End-stage renal disease on HD Hypertension Conservative cardiac management. Subjective Date of service: 08/07/16 Principal diagnosis: ESRD Interval history: Reported acute GI bleed overnight. Patient denies chest pain and shortness. Objective Vital Signs Temp Pulse Pulse Resp Resp BP BP 08/07/16 11:00 74 08/07/16 10:59 74 102/60 08/07/16 10:58 74 102/60 08/07/16 10:00 20 18 08/07/16 08:21 98 F 72 20 124/60 08/07/16 08:12 98.4 F 76 20 120/62 08/07/16 08:07 98.2 F 74 20 122/64 08/07/16 08:00 98.6 F 77 18 115/59 08/07/16 07:42 98 F 72 20 124/60 08/07/16 07:12 98.8 F 78 18 122/58 08/07/16 06:42 98.3 F 72 18 93/52 08/07/16 06:27 97.8 F 80 18 80/53 08/07/16 04:40 97.9 F 74 20 118/58 08/07/16 03:02 98.1 F 76 18 132/60 08/07/16 01:14 98.3 F 86 20 136/82 08/06/16 22:00 18 08/06/16 21:34 78 180/71 08/06/16 21:33 78 180/71 08/06/16 21:18 97.8 F 74 22 147/67 08/06/16 21:16 08/06/16 18:45 97.4 F L 64 20 164/65 08/06/16 18:30 62 206/68 08/06/16 18:15 62 208/69 08/06/16 18:00 84 124/62 08/06/16 17:45 73 141/66 08/06/16 17:30 65 174/70 08/06/16 17:25 81 235/83 08/06/16 17:18 54 L 84/50 08/06/16 17:00 76 122/63 08/06/16 16:45 70 156/77 08/06/16 16:30 67 168/75 08/06/16 16:15 66 160/70 08/06/16 16:00 72 158/77 08/06/16 15:45 98.3 F 75 20 145/70 08/06/16 15:23 98.1 F 77 BP Pulse Ox 08/07/16 11:00 08/07/16 10:59 08/07/16 10:58 08/07/16 10:00 08/07/16 08:21 98 08/07/16 08:12 99 08/07/16 08:07 99 08/07/16 08:00 100 08/07/16 07:42 99 08/07/16 07:12 98 08/07/16 06:42 08/07/16 06:27 08/07/16 04:40 100 08/07/16 03:02 97 08/07/16 01:14 100 08/06/16 22:00 08/06/16 21:34 08/06/16 21:33 08/06/16 21:18 100 08/06/16 21:16 97 08/06/16 18:45 08/06/16 18:30 08/06/16 18:15 08/06/16 18:00 08/06/16 17:45 08/06/16 17:30 08/06/16 17:25 08/06/16 17:18 08/06/16 17:00 08/06/16 16:45 08/06/16 16:30 08/06/16 16:15 08/06/16 16:00 08/06/16 15:45 08/06/16 15:23 142/65 - Physical Examination General: No Apparent Distress HEENT: Positive: PERRL Neck: Positive: trachea midline Cardiac: Positive: Reg Rate and Rhythm Lungs: Positive: Decreased Breath Sounds Neuro: Positive: Grossly Intact Extremities: Absent: edema - Labs and Meds Cardiac Enzymes 08/06/16 Range/Units 14:18 CK-MB (CK-2) 2.0 (0.0-4.0) ng/mL CBC 08/07/16 08/07/16 Range/Units 04:17 11:29 WBC 10.7 (4.5-11.0) K/mm3 RBC 2.49 L (3.65-5.03) M/mm3 Hgb 6.5 L D 8.0 L (10.1-14.3) gm/dl Hct 20.1 L D 24.5 L (30.3-42.9) % Plt Count 319 (140-440) K/mm3 Lymph # 1.9 (1.2-5.4) K/mm3 Coke # 1.0 H (0.0-0.8) K/mm3 Eos # 0.1 (0.0-0.4) K/mm3 Baso # 0.0 (0.0-0.1) K/mm3 Comprehensive Metabolic Panel 08/07/16 Range/Units 04:17 Sodium 140 (137-145) mmol/L Potassium 3.6 (3.6-5.0) mmol/L Chloride 98.5 (98-107) mmol/L Carbon Dioxide 27 (22-30) mmol/L BUN 19 H (7-17) mg/dL Creatinine 4.1 H (0.7-1.2) mg/dL Glucose 138 H (65-100) mg/dL Calcium 7.5 L (8.4-10.2) mg/dL - Imaging and Cardiology EKG: image reviewed (No acute findings)
--- NOTE | 2016-08-07 12:28 | Progress Note ---
Assessment and Plan Assessment and plan: 75-year-old -[place] female presented to the ED with non-radiating chest pain. Patient reported that her chest pain started yesterday in the midsternal area, non-radiating, dull pain 4 of 10 on scale of 0/10. Patient denied fever, chills, nausea, vomiting, shortness of breath, headache, abdominal pain. Patient's past medical history End-Stage Renal Disease on HD Wednesday//Wednesday, hypertension, appendectomy hysterectomy. On exam patient is alert oriented 3 complaint of blurry vision that also started yesterday along with the chest pain, left upper extremity AV fistula positive bruit noted. 1. Chest pain- EKG, cardiac enzymes, and stress test all negative 2. Acute on chronic ESRD - HD on , nephrology following. 3. Hyponatremia- follow-up BMP. 4. Hypertension-Continue home meds, Monitor BP, IV hydralazine ordered PRN while in the hospital 5. Rectal bleeding. Patient reports having a GI work-up last week (07/29/2016 ) at [facility] for anemia by Dr. Bills. EGD revealed esophagitis and a small hiatal hernia. Colonoscopy revealed brown diverticulosis, lipoma, small ascending polyp removed, and one 4 cm ascending polyp with a broad base that was unable to be removed. The large polyp was biopsied and marked with Libertad ink. Pathology showed one polyp to be tubular adenoma and the other tubulovillous adenoma. Patient is scheduled for a hemicolectomy at [facility] next week. Patient has received one unit of packed red blood cells. Continue to monitor H&H and transfuse as necessary. GI to perform colonoscopy if bleeding continues. 6. DVT prophylaxis- Heparin SQ ordered History Interval history: No new issues overnight. Hospitalist Physical - Constitutional Vitals: Temp Pulse Resp BP Pulse Ox 98 F 74 18 102/60 98 08/07/16 08:21 08/07/16 11:00 08/07/16 10:00 08/07/16 10:59 08/07/16 08:21 General appearance: Present: no acute distress - EENT Eyes: Present: PERRL, EOM intact ENT: hearing intact, clear oral mucosa, dentition normal - Neck Neck: Present: supple, normal ROM - Respiratory Respiratory effort: normal Respiratory: bilateral: CTA - Cardiovascular Rhythm: regular Heart Sounds: Present: S1 & S2. Absent: gallop, rub - Extremities Extremities: no ischemia, No edema, Full ROM - Abdominal General gastrointestinal: soft, non-tender, non-distended, normal bowel sounds - Integumentary Integumentary: Present: clear, warm, dry - Neurologic Neurologic: CNII-XII intact, moves all extremities Results - Labs CBC & Chem 7: 08/07/16 11:29 08/07/16 04:17 Labs: Laboratory Last Values WBC 10.7 K/mm3 (4.5-11.0) 08/07/16 04:17 RBC 2.49 M/mm3 (3.65-5.03) L 08/07/16 04:17 Hgb 8.0 gm/dl (10.1-14.3) L 08/07/16 11:29 Hct 24.5 % (30.3-42.9) L 08/07/16 11:29 MCV 80 fl (79-97) 08/07/16 04:17 MCH 26 pg (28-32) L 08/07/16 04:17 MCHC 33 % (30-34) 08/07/16 04:17 RDW 15.9 % (13.2-15.2) H 08/07/16 04:17 Plt Count 319 K/mm3 (140-440) 08/07/16 04:17 Lymph % (Auto) 18.1 % (13.4-35.0) 08/07/16 04:17 Mobile % (Auto) 9.4 % (0.0-7.3) H 08/07/16 04:17 Eos % (Auto) 0.6 % (0.0-4.3) 08/07/16 04:17 Baso % (Auto) 0.4 % (0.0-1.8) 08/07/16 04:17 Lymph # 1.9 K/mm3 (1.2-5.4) 08/07/16 04:17 Mobile # 1.0 K/mm3 (0.0-0.8) H 08/07/16 04:17 Eos # 0.1 K/mm3 (0.0-0.4) 08/07/16 04:17 Baso # 0.0 K/mm3 (0.0-0.1) 08/07/16 04:17 Seg Neutrophils % 71.5 % (40.0-70.0) H 08/07/16 04:17 Seg Neutrophils # 7.7 K/mm3 (1.8-7.7) 08/07/16 04:17 PT 14.8 Sec. (12.2-14.9) 08/05/16 21:58 INR 1.17 (0.87-1.13) H 08/05/16 21:58 APTT 36.8 Sec. (24.2-36.6) H 08/05/16 21:58 Sodium 140 mmol/L (137-145) 08/07/16 04:17 Potassium 3.6 mmol/L (3.6-5.0) 08/07/16 04:17 Chloride 98.5 mmol/L (98-107) 08/07/16 04:17 Carbon Dioxide 27 mmol/L (22-30) 08/07/16 04:17 Anion Gap 18 mmol/L 08/07/16 04:17 BUN 19 mg/dL (7-17) H 08/07/16 04:17 Creatinine 4.1 mg/dL (0.7-1.2) H 08/07/16 04:17 Estimated GFR 13 ml/min 08/07/16 04:17 BUN/Creatinine Ratio 4.63 % 08/07/16 04:17 Glucose 138 mg/dL (65-100) H 08/07/16 04:17 POC Glucose 154 (70-105) H 08/07/16 04:08 Calcium 7.5 mg/dL (8.4-10.2) L 08/07/16 04:17 Phosphorus 3.10 mg/dL (2.5-4.5) 08/07/16 04:17 Total Creatine Kinase 117 units/L (30-135) 08/06/16 14:18 CK-MB (CK-2) 2.0 ng/mL (0.0-4.0) 08/06/16 14:18 CK-MB (CK-2) Rel Index 1.7 (0-4) 08/06/16 14:18 Troponin T 0.019 ng/mL (0.00-0.029) 08/06/16 14:18 Blood Type B POSITIVE 08/07/16 04:20 Antibody Screen TNR 08/07/16 04:20 PAUL Antibody Screen Negative 08/07/16 04:20 Crossmatch See Detail 08/07/16 04:20
[2016-08-08 05:46] LABS: Basophils % (Auto) 0.5 % (0.0-1.8); Eosinophils % (Auto) 2.6 % (0.0-4.3); Hemoglobin 6.7 gm/dl (10.1-14.3); Mean Corpuscular HGB Conc 34 % (30-34); Mean Corpuscular Hemoglobin 27 pg (28-32); Mean Corpuscular Volume 80 fl (79-97); Platelet Count 230 K/mm3 (140-440); Red Blood Count 2.51 M/mm3 (3.65-5.03); Red Cell Distribution Width 15.3 % (13.2-15.2); White Blood Count 7.2 K/mm3 (4.5-11.0)
[2016-08-08 06:07] LABS: BUN/Creatinine Ratio 4.48; Calcium 7.1 mg/dL (8.4-10.2); Chloride 95.5 mmol/L (98-107); Phosphorous 3.1 mg/dL (2.5-4.5); Potassium 3.7 mmol/L (3.6-5.0)
[2016-08-08] MEDS: OSCAL PO SCH (09:53)
[2016-08-08] MEDS: PROTONIX PO SCH (09:53)
[2016-08-08] MEDS: CLARITIN PO SCH (09:53)
[2016-08-08] MEDS: FEOSOL PO SCH ×3 (09:53→20:47)
[2016-08-08] MEDS: APRESOLINE PO SCH ×3 (09:54→20:47)
[2016-08-08] MEDS: LOPRESSOR PO SCH ×2 (09:54→22:53)
[2016-08-08] MEDS: CATAPRES PO SCH ×2 (09:54→22:53)
--- NOTE | 2016-08-08 09:56 | Progress Note ---
Assessment and Plan - Patient Problems (1) Chest pain Current Visit: Yes Status: Acute Qualifiers: Chest pain type: C Ischemic chest pain type: I Plan to address problem: followed by cardiology, no further cardiac work up needed (2) End stage renal disease Current Visit: Yes Status: Acute Plan to address problem: current access is L AVF with + thrill and bruit HD today for clearance and volume removal will asses HD needs daily no heparin with HD strict I&O daily weights renal diet (3) Anemia in chronic kidney disease (CKD) Current Visit: Yes Status: Acute Qualifiers: Chronic kidney disease stage: C Plan to address problem: s/p 1 units PRBC transfusion GI on board, may need colonoscopy Epogen with HD (4) Secondary hyperparathyroidism (of renal origin) Current Visit: Yes Status: Acute Plan to address problem: cont calcium carbonate (5) Hypertension Current Visit: No Status: Acute Qualifiers: Hypertension type: H Plan to address problem: stable Subjective Date of service: 08/08/16 Principal diagnosis: ESRD Interval history: feels weak, cont to have blood in stool Objective - Vital Signs Vital signs: Vital Signs - 12hr 08/07/16 08/07/16 08/07/16 22:00 23:19 23:20 Temperature Pulse Rate 79 79 Pulse Rate [ Right Radial] Respiratory Rate Respiratory 20 Rate [Chest] Blood Pressure 146/64 146/64 Blood Pressure [Right Arm] O2 Sat by Pulse Oximetry 08/07/16 08/08/16 08/08/16 23:24 05:43 08:00 Temperature 97.9 F 98.2 F 98.3 F Pulse Rate Pulse Rate [ 79 84 46 L Right Radial] Respiratory 20 20 18 Rate Respiratory Rate [Chest] Blood Pressure Blood Pressure 146/64 103/70 161/80 [Right Arm] O2 Sat by Pulse 100 100 100 Oximetry 08/08/16 09:54 Temperature Pulse Rate 46 L Pulse Rate [ Right Radial] Respiratory Rate Respiratory Rate [Chest] Blood Pressure 161/80 Blood Pressure [Right Arm] O2 Sat by Pulse Oximetry - General Appearance General appearance: cachectic EENT: ATNC, PERRL, mucous membranes moist Neck: no JVD, no carotid bruit Respiratory: Present: Clear to Ascultation Cardiology: regular, S1S2 Gastrointestinal: normoactive bowel sounds, no tenderness, no distended, no guarding Integumentary: no rash, warm and dry Neurologic: no focal deficit, no asterixis, alert and oriented x3 Musculoskeletal: other (no edema in BLE) Psychiatric: mood/affect appropriate, cooperative - Lab 08/08/16 05:25 08/08/16 05:25 Most recent lab results Calcium 7.1 mg/dL (8.4-10.2) L 08/08/16 05:25 Phosphorus 3.10 mg/dL (2.5-4.5) 08/08/16 05:25
[2016-08-08] MEDS: FLONASE NS SCH (10:00)
[2016-08-08] MEDS ORDERED: NACL 0.9 (PRIMING MACHINE ONLY DIALYSIS) MC ONE (11:48)
[2016-08-08] MEDS ORDERED: NACL 0.9% 500 ML 500 ML IV ONE (11:52)
--- NOTE | 2016-08-08 14:28 | Progress Note ---
Assessment and Plan Assessment and plan: 1. Chest pain- EKG, cardiac enzymes, and stress test all negative 2. Acute on chronic ESRD - HD on //, nephrology following. 3. Hyponatremia- follow-up BMP. 4. Hypertension-Continue home meds, Monitor BP, IV hydralazine ordered PRN while in the hospital 5. Rectal bleeding. Patient reports having a GI work-up last week (07/29/2016 ) at [facility] for anemia by Dr. Bills. EGD revealed esophagitis and a small hiatal hernia. Colonoscopy revealed brown diverticulosis, lipoma, small ascending polyp removed, and one 4 cm ascending polyp with a broad base that was unable to be removed. The large polyp was biopsied and marked with Libertad ink. Pathology showed one polyp to be tubular adenoma and the other tubulovillous adenoma. Patient is scheduled for a hemicolectomy at [facility] next week. Patient status post transfusion. However, Hemoglobin dropped to 6.7 this morning. Continue to monitor H&H and patient currently receiving further transfusion today. No evidence of active bleeding. GI to perform colonoscopy if bleeding continues. Await GI recommendations for follow- up. 6. DVT prophylaxis- Heparin SQ ordered History Interval history: No new issues overnight. Patient seen in hemodialysis. Patient resting comfortably. Hospitalist Physical - Constitutional Vitals: Temp Pulse Resp BP Pulse Ox 97.8 F 61 20 187/74 98 08/08/16 14:21 08/08/16 14:21 08/08/16 14:21 08/08/16 14:21 08/08/16 10:00 General appearance: Present: no acute distress - EENT Eyes: Present: PERRL, EOM intact ENT: hearing intact, clear oral mucosa, dentition normal - Neck Neck: Present: supple, normal ROM - Respiratory Respiratory effort: normal Respiratory: bilateral: CTA - Cardiovascular Rhythm: regular Heart Sounds: Present: S1 & S2. Absent: gallop, rub - Extremities Extremities: no ischemia, No edema, Full ROM - Abdominal General gastrointestinal: soft, non-tender, non-distended, normal bowel sounds - Integumentary Integumentary: Present: clear, warm, dry - Neurologic Neurologic: CNII-XII intact, moves all extremities Results - Labs CBC & Chem 7: 08/08/16 05:25 08/08/16 05:25 Labs: Laboratory Last Values WBC 7.2 K/mm3 (4.5-11.0) 08/08/16 05:25 RBC 2.51 M/mm3 (3.65-5.03) L 08/08/16 05:25 Hgb 6.7 gm/dl (10.1-14.3) L 08/08/16 05:25 Hct 20.0 % (30.3-42.9) L 08/08/16 05:25 MCV 80 fl (79-97) 08/08/16 05:25 MCH 27 pg (28-32) L 08/08/16 05:25 MCHC 34 % (30-34) 08/08/16 05:25 RDW 15.3 % (13.2-15.2) H 08/08/16 05:25 Plt Count 230 K/mm3 (140-440) 08/08/16 05:25 Lymph % (Auto) 15.4 % (13.4-35.0) 08/08/16 05:25 [place] % (Auto) 12.7 % (0.0-7.3) H 08/08/16 05:25 Eos % (Auto) 2.6 % (0.0-4.3) 08/08/16 05:25 Baso % (Auto) 0.5 % (0.0-1.8) 08/08/16 05:25 Lymph # 1.1 K/mm3 (1.2-5.4) L 08/08/16 05:25 [place] # 0.9 K/mm3 (0.0-0.8) H 08/08/16 05:25 Eos # 0.2 K/mm3 (0.0-0.4) 08/08/16 05:25 Baso # 0.0 K/mm3 (0.0-0.1) 08/08/16 05:25 Seg Neutrophils % 68.8 % (40.0-70.0) 08/08/16 05:25 Seg Neutrophils # 5.0 K/mm3 (1.8-7.7) 08/08/16 05:25 PT 14.8 Sec. (12.2-14.9) 08/05/16 21:58 INR 1.17 (0.87-1.13) H 08/05/16 21:58 APTT 36.8 Sec. (24.2-36.6) H 08/05/16 21:58 Sodium 133 mmol/L (137-145) L 08/08/16 05:25 Potassium 3.7 mmol/L (3.6-5.0) 08/08/16 05:25 Chloride 95.5 mmol/L (98-107) L 08/08/16 05:25 Carbon Dioxide 23 mmol/L (22-30) 08/08/16 05:25 Anion Gap 18 mmol/L 08/08/16 05:25 BUN 26 mg/dL (7-17) H 08/08/16 05:25 Creatinine 5.8 mg/dL (0.7-1.2) H 08/08/16 05:25 Estimated GFR 9 ml/min 08/08/16 05:25 BUN/Creatinine Ratio 4.48 % 08/08/16 05:25 Glucose 108 mg/dL (65-100) H 08/08/16 05:25 POC Glucose 154 (70-105) H 08/07/16 04:08 Calcium 7.1 mg/dL (8.4-10.2) L 08/08/16 05:25 Phosphorus 3.10 mg/dL (2.5-4.5) 08/08/16 05:25 Total Creatine Kinase 117 units/L (30-135) 08/06/16 14:18 CK-MB (CK-2) 2.0 ng/mL (0.0-4.0) 08/06/16 14:18 CK-MB (CK-2) Rel Index 1.7 (0-4) 08/06/16 14:18 Troponin T 0.019 ng/mL (0.00-0.029) 08/06/16 14:18 Blood Type B POSITIVE 08/07/16 04:20 Antibody Screen TNR 08/07/16 04:20 PAUL Antibody Screen Negative 08/07/16 04:20 Crossmatch See Detail 08/07/16 04:20
--- NOTE | 2016-08-08 15:35 | Progress Note ---
Assessment and Plan 1. Hematochezia - no further episodes. May have been diverticular, or post- polypectomy from 07/29. No evidence of ongoing bleed. Pt given pRBC in dialysis today. - monitor H/H - adv diet. - if no further bleed, and H/H stable, okay to D/C with plans for surgical evaluation next week for elective R hemicolectomy. Subjective Date of service: 08/08/16 Principal diagnosis: ESRD Interval history: No more BMs since 3AM, 08/07. No abd pain, N/V. Objective - Constitutional Vitals: Vital Signs - 12hr 08/08/16 08/08/16 08/08/16 05:43 08:00 09:54 Temperature 98.2 F 98.3 F Pulse Rate 46 L Pulse Rate [ From Monitor] Pulse Rate [ 84 46 L Right Radial] Respiratory 20 18 Rate Blood Pressure 161/80 Blood Pressure 103/70 161/80 [Right Arm] O2 Sat by Pulse 100 100 Oximetry 08/08/16 08/08/16 08/08/16 10:00 11:00 11:45 Temperature 98.3 F Pulse Rate 70 68 56 L Pulse Rate [ 46 L From Monitor] Pulse Rate [ Right Radial] Respiratory 18 16 Rate Blood Pressure 164/65 184/67 Blood Pressure [Right Arm] O2 Sat by Pulse 98 Oximetry 08/08/16 08/08/16 08/08/16 12:00 12:15 12:30 Temperature Pulse Rate 61 65 60 Pulse Rate [ From Monitor] Pulse Rate [ Right Radial] Respiratory Rate Blood Pressure 197/73 193/80 189/69 Blood Pressure [Right Arm] O2 Sat by Pulse Oximetry 08/08/16 08/08/16 08/08/16 12:45 13:00 13:15 Temperature Pulse Rate 58 L 59 L 66 Pulse Rate [ From Monitor] Pulse Rate [ Right Radial] Respiratory Rate Blood Pressure 174/66 158/71 181/66 Blood Pressure [Right Arm] O2 Sat by Pulse Oximetry 08/08/16 08/08/16 08/08/16 13:30 13:45 14:00 Temperature Pulse Rate 69 59 L 61 Pulse Rate [ From Monitor] Pulse Rate [ Right Radial] Respiratory Rate Blood Pressure 169/71 191/72 187/74 Blood Pressure [Right Arm] O2 Sat by Pulse Oximetry 08/08/16 08/08/16 14:20 14:21 Temperature 97.8 F Pulse Rate 61 Pulse Rate [ From Monitor] Pulse Rate [ Right Radial] Respiratory 20 Rate Blood Pressure 187/74 187/74 Blood Pressure [Right Arm] O2 Sat by Pulse Oximetry General appearance: Present: no acute distress - EENT Eyes: PERRL, EOM intact ENT: hearing intact - Respiratory Respiratory effort: normal - Gastrointestinal General gastrointestinal: Present: soft, non-tender - Labs CBC & Chem 7: 08/08/16 05:25 08/08/16 05:25 Labs: Abnormal lab results 08/07/16 08/08/16 08/08/16 Range/Units 04:20 05:25 05:25 RBC 2.51 L (3.65-5.03) M/mm3 Hgb 6.7 L (10.1-14.3) gm/dl Hct 20.0 L (30.3-42.9) % MCH 27 L (28-32) pg RDW 15.3 H (13.2-15.2) % [place] % (Auto) 12.7 H (0.0-7.3) % Lymph # 1.1 L (1.2-5.4) K/mm3 [place] # 0.9 H (0.0-0.8) K/mm3 Sodium 133 L (137-145) mmol/L Chloride 95.5 L (98-107) mmol/L BUN 26 H (7-17) mg/dL Creatinine 5.8 H (0.7-1.2) mg/dL Glucose 108 H (65-100) mg/dL Calcium 7.1 L (8.4-10.2) mg/dL Crossmatch See Detail
--- NOTE | 2016-08-08 18:58 | Progress Note ---
Assessment and Plan - Patient Problems (1) Chest pain Current Visit: Yes Status: Acute Qualifiers: Chest pain type: C Ischemic chest pain type: I Plan to address problem: improved,,,noncardiac (2) End stage renal disease Current Visit: Yes Status: Acute (3) Lower GI bleed Current Visit: Yes Status: Acute (4) Hypertension Current Visit: No Status: Acute Qualifiers: Hypertension type: H Subjective Date of service: 08/08/16 Principal diagnosis: ESRD Interval history: no c\o Objective Vital Signs Temp Pulse Pulse Pulse Pulse Resp Resp 08/08/16 16:00 98.7 F 68 20 08/08/16 14:21 97.8 F 61 20 08/08/16 14:20 08/08/16 14:00 61 08/08/16 13:45 59 L 08/08/16 13:30 69 08/08/16 13:15 66 08/08/16 13:00 59 L 08/08/16 12:45 58 L 08/08/16 12:30 60 08/08/16 12:15 65 08/08/16 12:00 61 08/08/16 11:45 56 L 08/08/16 11:00 98.3 F 68 16 08/08/16 10:00 70 46 L 18 08/08/16 09:54 46 L 08/08/16 08:00 98.3 F 46 L 18 08/08/16 05:43 98.2 F 84 20 08/07/16 23:24 97.9 F 79 20 08/07/16 23:20 79 08/07/16 23:19 79 08/07/16 22:00 20 08/07/16 21:23 08/07/16 20:13 20 08/07/16 20:07 98.5 F 72 18 BP BP BP Pulse Ox 08/08/16 16:00 189/75 100 08/08/16 14:21 187/74 08/08/16 14:20 187/74 08/08/16 14:00 187/74 08/08/16 13:45 191/72 08/08/16 13:30 169/71 08/08/16 13:15 181/66 08/08/16 13:00 158/71 08/08/16 12:45 174/66 08/08/16 12:30 189/69 08/08/16 12:15 193/80 08/08/16 12:00 197/73 08/08/16 11:45 184/67 08/08/16 11:00 164/65 08/08/16 10:00 98 08/08/16 09:54 161/80 08/08/16 08:00 161/80 100 08/08/16 05:43 103/70 100 08/07/16 23:24 146/64 100 08/07/16 23:20 146/64 08/07/16 23:19 146/64 08/07/16 22:00 08/07/16 21:23 99 08/07/16 20:13 99 08/07/16 20:07 129/58 100 - Physical Examination General: No Apparent Distress HEENT: Positive: PERRL Neck: Positive: trachea midline Cardiac: Positive: Reg Rate and Rhythm Lungs: Positive: clear to auscultation Neuro: Positive: Grossly Intact Abdomen: Positive: Soft Skin: Positive: Clear Extremities: Absent: edema - Labs and Meds CBC 08/08/16 Range/Units 05:25 WBC 7.2 (4.5-11.0) K/mm3 RBC 2.51 L (3.65-5.03) M/mm3 Hgb 6.7 L (10.1-14.3) gm/dl Hct 20.0 L (30.3-42.9) % Plt Count 230 (140-440) K/mm3 Lymph # 1.1 L (1.2-5.4) K/mm3 [place] # 0.9 H (0.0-0.8) K/mm3 Eos # 0.2 (0.0-0.4) K/mm3 Baso # 0.0 (0.0-0.1) K/mm3 Comprehensive Metabolic Panel 08/08/16 Range/Units 05:25 Sodium 133 L (137-145) mmol/L Potassium 3.7 (3.6-5.0) mmol/L Chloride 95.5 L (98-107) mmol/L Carbon Dioxide 23 (22-30) mmol/L BUN 26 H (7-17) mg/dL Creatinine 5.8 H (0.7-1.2) mg/dL Glucose 108 H (65-100) mg/dL Calcium 7.1 L (8.4-10.2) mg/dL - Imaging and Cardiology EKG: image reviewed (No acute findings)
[2016-08-09 06:42] LABS: Basophils % (Auto) 0.3 % (0.0-1.8); Eosinophils % (Auto) 3.3 % (0.0-4.3); Hematocrit 27.7 % (30.3-42.9); Hemoglobin 9.2 gm/dl (10.1-14.3); Mean Corpuscular HGB Conc 33 % (30-34); Mean Corpuscular Hemoglobin 27 pg (28-32); Mean Corpuscular Volume 82 fl (79-97); Platelet Count 209 K/mm3 (140-440); Red Blood Count 3.37 M/mm3 (3.65-5.03); White Blood Count 7.1 K/mm3 (4.5-11.0)
[2016-08-09 07:04] LABS: BUN/Creatinine Ratio 3.87; Calcium 7.8 mg/dL (8.4-10.2); Chloride 98.4 mmol/L (98-107); Phosphorous 3.7 mg/dL (2.5-4.5); Potassium 4.3 mmol/L (3.6-5.0)
--- NOTE | 2016-08-09 09:57 | Progress Note ---
Assessment and Plan - Patient Problems (1) Chest pain Current Visit: Yes Status: Acute Qualifiers: Chest pain type: C Ischemic chest pain type: I Plan to address problem: followed by cardiology, no further cardiac work up needed (2) End stage renal disease Current Visit: Yes Status: Acute Plan to address problem: current access is L AVF with + thrill and bruit no indication for HD today will asses HD needs daily no heparin with HD strict I&O daily weights renal diet (3) Anemia in chronic kidney disease (CKD) Current Visit: Yes Status: Acute Qualifiers: Chronic kidney disease stage: C Plan to address problem: GI on board, scheduled for surgery next week Epogen with HD (4) Secondary hyperparathyroidism (of renal origin) Current Visit: Yes Status: Acute Plan to address problem: cont calcium carbonate (5) Hypertension Current Visit: No Status: Acute Qualifiers: Hypertension type: H Plan to address problem: stable Subjective Date of service: 08/09/16 Principal diagnosis: ESRD Interval history: tolerated HD well yesterday Objective - Vital Signs Vital signs: Vital Signs - 12hr 08/08/16 08/08/16 08/09/16 22:53 23:26 05:12 Temperature 98.8 F 97.6 F Pulse Rate 80 Pulse Rate [ 78 From Monitor] Pulse Rate [ 80 Right Radial] Respiratory 20 18 Rate Blood Pressure 155/91 Blood Pressure 155/91 148/64 [Right Arm] O2 Sat by Pulse 100 92 Oximetry 08/09/16 09:05 Temperature 97.5 F L Pulse Rate Pulse Rate [ 74 From Monitor] Pulse Rate [ Right Radial] Respiratory 18 Rate Blood Pressure Blood Pressure 121/57 [Right Arm] O2 Sat by Pulse 95 Oximetry - General Appearance General appearance: well-developed, well-nourished EENT: ATNC, PERRL, mucous membranes moist Neck: no JVD, no carotid bruit Respiratory: Present: Clear to Ascultation. Absent: Rales, Ronchi Cardiology: regular, S1S2 Gastrointestinal: normoactive bowel sounds, no tenderness, no distended, no guarding Integumentary: no rash, warm and dry Neurologic: no focal deficit, no asterixis, alert and oriented x3 Musculoskeletal: other (no edema in BLE) Psychiatric: mood/affect appropriate, cooperative - Lab 08/09/16 06:04 08/09/16 06:04 Most recent lab results Calcium 7.8 mg/dL (8.4-10.2) L 08/09/16 06:04 Phosphorus 3.70 mg/dL (2.5-4.5) 08/09/16 06:04
[2016-08-09] MEDS: CATAPRES PO SCH ×2 (10:17→22:22)
[2016-08-09] MEDS: LOPRESSOR PO SCH ×2 (10:18→22:22)
[2016-08-09] MEDS: OSCAL PO SCH (10:18)
[2016-08-09] MEDS: PROTONIX PO SCH (10:18)
[2016-08-09] MEDS: APRESOLINE PO SCH ×3 (10:19→20:57)
[2016-08-09] MEDS: CLARITIN PO SCH (10:19)
[2016-08-09] MEDS: FLONASE NS SCH (10:20)
[2016-08-09] MEDS: FEOSOL PO SCH ×3 (10:20→20:57)
--- NOTE | 2016-08-09 10:29 | Progress Note ---
Assessment and Plan Assessment and plan: 1. Chest pain- EKG, cardiac enzymes, and stress test all negative 2. Acute on chronic ESRD - HD on /, nephrology following. 3. Hyponatremia- follow-up BMP. 4. Hypertension-Continue home meds, Monitor BP, IV hydralazine ordered PRN while in the hospital 5. Rectal bleeding. Etiology may have been diverticular or pulse colectomy from 07/29/16. Patient with no further episodes of bleeding. Patient received PRBCs yesterday. Continue to monitor H&H. Advance diet as tolerated. If no further bleed, and H/H stable, okay to D/C with plans for surgical evaluation next week for elective R hemicolectomy. 6. DVT prophylaxis- Heparin SQ ordered History Interval history: No new issues overnight. Patient seen in hemodialysis. Patient resting comfortably. Hospitalist Physical - Constitutional Vitals: Temp Pulse Resp BP Pulse Ox 97.5 F L 74 18 121/57 95 08/09/16 09:05 08/09/16 09:05 08/09/16 09:05 08/09/16 09:05 08/09/16 09:05 General appearance: Present: no acute distress - EENT Eyes: Present: PERRL, EOM intact ENT: hearing intact, clear oral mucosa, dentition normal - Neck Neck: Present: supple, normal ROM - Respiratory Respiratory effort: normal Respiratory: bilateral: CTA - Cardiovascular Rhythm: regular Heart Sounds: Present: S1 & S2. Absent: gallop, rub - Extremities Extremities: no ischemia, No edema, Full ROM - Abdominal General gastrointestinal: soft, non-tender, non-distended, normal bowel sounds - Integumentary Integumentary: Present: clear, warm, dry - Neurologic Neurologic: CNII-XII intact, moves all extremities Results - Labs CBC & Chem 7: 08/09/16 06:04 08/09/16 06:04 Labs: Laboratory Last Values WBC 7.1 K/mm3 (4.5-11.0) 08/09/16 06:04 RBC 3.37 M/mm3 (3.65-5.03) L 08/09/16 06:04 Hgb 9.2 gm/dl (10.1-14.3) L 08/09/16 06:04 Hct 27.7 % (30.3-42.9) L D 08/09/16 06:04 MCV 82 fl (79-97) 08/09/16 06:04 MCH 27 pg (28-32) L 08/09/16 06:04 MCHC 33 % (30-34) 08/09/16 06:04 RDW 15.0 % (13.2-15.2) 08/09/16 06:04 Plt Count 209 K/mm3 (140-440) 08/09/16 06:04 Lymph % (Auto) 13.1 % (13.4-35.0) L 08/09/16 06:04 [place] % (Auto) 11.5 % (0.0-7.3) H 08/09/16 06:04 Eos % (Auto) 3.3 % (0.0-4.3) 08/09/16 06:04 Baso % (Auto) 0.3 % (0.0-1.8) 08/09/16 06:04 Lymph # 0.9 K/mm3 (1.2-5.4) L 08/09/16 06:04 [place] # 0.8 K/mm3 (0.0-0.8) 08/09/16 06:04 Eos # 0.2 K/mm3 (0.0-0.4) 08/09/16 06:04 Baso # 0.0 K/mm3 (0.0-0.1) 08/09/16 06:04 Seg Neutrophils % 71.8 % (40.0-70.0) H 08/09/16 06:04 Seg Neutrophils # 5.1 K/mm3 (1.8-7.7) 08/09/16 06:04 PT 14.8 Sec. (12.2-14.9) 08/05/16 21:58 INR 1.17 (0.87-1.13) H 08/05/16 21:58 APTT 36.8 Sec. (24.2-36.6) H 08/05/16 21:58 Sodium 137 mmol/L (137-145) 08/09/16 06:04 Potassium 4.3 mmol/L (3.6-5.0) 08/09/16 06:04 Chloride 98.4 mmol/L (98-107) 08/09/16 06:04 Carbon Dioxide 27 mmol/L (22-30) 08/09/16 06:04 Anion Gap 16 mmol/L 08/09/16 06:04 BUN 19 mg/dL (7-17) H 08/09/16 06:04 Creatinine 4.9 mg/dL (0.7-1.2) H 08/09/16 06:04 Estimated GFR 10 ml/min 08/09/16 06:04 BUN/Creatinine Ratio 3.87 % 08/09/16 06:04 Glucose 96 mg/dL (65-100) 08/09/16 06:04 POC Glucose 154 (70-105) H 08/07/16 04:08 Calcium 7.8 mg/dL (8.4-10.2) L 08/09/16 06:04 Phosphorus 3.70 mg/dL (2.5-4.5) 08/09/16 06:04 Total Creatine Kinase 117 units/L (30-135) 08/06/16 14:18 CK-MB (CK-2) 2.0 ng/mL (0.0-4.0) 08/06/16 14:18 CK-MB (CK-2) Rel Index 1.7 (0-4) 08/06/16 14:18 Troponin T 0.019 ng/mL (0.00-0.029) 08/06/16 14:18 Blood Type B POSITIVE 08/07/16 04:20 Antibody Screen TNR 08/07/16 04:20 PAUL Antibody Screen Negative 08/07/16 04:20 Crossmatch See Detail 08/07/16 04:20
--- NOTE | 2016-08-09 10:29 | Progress Note ---
Assessment and Plan - Patient Problems (1) Chest pain Current Visit: Yes Status: Acute (2) End stage renal disease Current Visit: Yes Status: Acute (3) Lower GI bleed Current Visit: Yes Status: Acute (4) Hypertension Current Visit: No Status: Acute Subjective Date of service: 08/09/16 Principal diagnosis: ESRD Interval history: no c\o Objective Vital Signs Temp Pulse Pulse Pulse Resp Resp BP 08/09/16 09:05 97.5 F L 74 18 08/09/16 05:12 97.6 F 78 18 08/08/16 23:26 98.8 F 80 20 08/08/16 22:53 80 155/91 08/08/16 21:45 20 08/08/16 20:31 22 08/08/16 20:24 98.3 F 88 18 08/08/16 20:04 80 08/08/16 16:00 98.7 F 68 20 08/08/16 14:21 97.8 F 61 20 187/74 08/08/16 14:20 187/74 08/08/16 14:00 61 187/74 08/08/16 13:45 59 L 191/72 08/08/16 13:30 69 169/71 08/08/16 13:15 66 181/66 08/08/16 13:00 59 L 158/71 08/08/16 12:45 58 L 174/66 08/08/16 12:30 60 189/69 08/08/16 12:15 65 193/80 08/08/16 12:00 61 197/73 08/08/16 11:45 56 L 184/67 08/08/16 11:00 98.3 F 68 16 164/65 BP Pulse Ox 08/09/16 09:05 121/57 95 08/09/16 05:12 148/64 92 08/08/16 23:26 155/91 100 08/08/16 22:53 08/08/16 21:45 08/08/16 20:31 98 08/08/16 20:24 141/67 100 08/08/16 20:04 08/08/16 16:00 189/75 100 08/08/16 14:21 08/08/16 14:20 08/08/16 14:00 08/08/16 13:45 08/08/16 13:30 08/08/16 13:15 08/08/16 13:00 08/08/16 12:45 08/08/16 12:30 08/08/16 12:15 08/08/16 12:00 08/08/16 11:45 08/08/16 11:00 - Physical Examination General: No Apparent Distress HEENT: Positive: PERRL Neck: Positive: trachea midline Cardiac: Positive: Reg Rate and Rhythm Lungs: Positive: clear to auscultation Neuro: Positive: Grossly Intact Abdomen: Positive: Soft Skin: Positive: Clear Extremities: Present: normal. Absent: edema - Labs and Meds CBC 08/09/16 Range/Units 06:04 WBC 7.1 (4.5-11.0) K/mm3 RBC 3.37 L (3.65-5.03) M/mm3 Hgb 9.2 L (10.1-14.3) gm/dl Hct 27.7 L D (30.3-42.9) % Plt Count 209 (140-440) K/mm3 Lymph # 0.9 L (1.2-5.4) K/mm3 [place] # 0.8 (0.0-0.8) K/mm3 Eos # 0.2 (0.0-0.4) K/mm3 Baso # 0.0 (0.0-0.1) K/mm3 Comprehensive Metabolic Panel 08/09/16 Range/Units 06:04 Sodium 137 (137-145) mmol/L Potassium 4.3 (3.6-5.0) mmol/L Chloride 98.4 (98-107) mmol/L Carbon Dioxide 27 (22-30) mmol/L BUN 19 H (7-17) mg/dL Creatinine 4.9 H (0.7-1.2) mg/dL Glucose 96 (65-100) mg/dL Calcium 7.8 L (8.4-10.2) mg/dL - Imaging and Cardiology EKG: image reviewed (No acute findings)
--- NOTE | 2016-08-09 20:40 | Progress Note ---
Assessment and Plan 1. Hematochezia - no further episodes. May have been diverticular, or post- polypectomy from 07/29. No evidence of ongoing bleed. Pt given pRBC in dialysis yesterday, with improvement in H/H. - okay to D/C with plans for surgical evaluation next week for elective R hemicolectomy. - Will sign off. Thanks. Subjective Date of service: 08/09/16 Principal diagnosis: ESRD Interval history: No BMs, no complaints. Objective - Constitutional Vitals: Vital Signs - 12hr 08/09/16 08/09/16 08/09/16 09:05 10:00 13:10 Temperature 97.5 F L 97.5 F L Pulse Rate 64 Pulse Rate [ 74 76 75 From Monitor] Respiratory 18 16 18 Rate Respiratory 20 Rate [Chest] Blood Pressure 121/57 115/55 [Right Arm] O2 Sat by Pulse 95 99 99 Oximetry 08/09/16 17:05 Temperature 99.8 F H Pulse Rate Pulse Rate [ 75 From Monitor] Respiratory 18 Rate Respiratory Rate [Chest] Blood Pressure 143/66 [Right Arm] O2 Sat by Pulse 100 Oximetry General appearance: Present: no acute distress - EENT Eyes: PERRL, EOM intact ENT: hearing intact - Respiratory Respiratory effort: normal - Gastrointestinal General gastrointestinal: Present: soft, non-tender - Labs CBC & Chem 7: 08/09/16 06:04 08/09/16 06:04 Labs: Abnormal lab results 08/09/16 08/09/16 Range/Units 06:04 06:04 RBC 3.37 L (3.65-5.03) M/mm3 Hgb 9.2 L (10.1-14.3) gm/dl Hct 27.7 L D (30.3-42.9) % MCH 27 L (28-32) pg Lymph % (Auto) 13.1 L (13.4-35.0) % [place] % (Auto) 11.5 H (0.0-7.3) % Lymph # 0.9 L (1.2-5.4) K/mm3 Seg Neutrophils % 71.8 H (40.0-70.0) % BUN 19 H (7-17) mg/dL Creatinine 4.9 H (0.7-1.2) mg/dL Calcium 7.8 L (8.4-10.2) mg/dL
[2016-08-10 08:27] LABS: Basophils % (Auto) 0.4 % (0.0-1.8); Eosinophils % (Auto) 3.8 % (0.0-4.3); Hematocrit 25.7 % (30.3-42.9); Hemoglobin 8.3 gm/dl (10.1-14.3); Mean Corpuscular HGB Conc 32 % (30-34); Mean Corpuscular Hemoglobin 27 pg (28-32); Mean Corpuscular Volume 85 fl (79-97); Platelet Count 219 K/mm3 (140-440); Red Blood Count 3.04 M/mm3 (3.65-5.03); Red Cell Distribution Width 15.5 % (13.2-15.2); White Blood Count 7.5 K/mm3 (4.5-11.0)
[2016-08-10 09:05] VITALS: BP 157/67
[2016-08-10] MEDS: FLONASE NS SCH (09:11)
[2016-08-10] MEDS: PROTONIX PO SCH (09:12)
[2016-08-10] MEDS: OSCAL PO SCH (09:12)
[2016-08-10] MEDS: FEOSOL PO SCH (09:12)
[2016-08-10] MEDS: CATAPRES PO SCH (09:13)
[2016-08-10] MEDS: APRESOLINE PO SCH (09:13)
[2016-08-10] MEDS: CLARITIN PO SCH (09:14)
[2016-08-10] MEDS: LOPRESSOR PO SCH (09:14)
--- NOTE | 2016-08-10 09:14 | Progress Note ---
Assessment and Plan - Patient Problems (1) Chest pain Current Visit: Yes Status: Acute Qualifiers: Chest pain type: C Ischemic chest pain type: I Plan to address problem: Followed by Cardiology, no further cardiac work up needed No ischemia, LVEF 59% per Cardiology (2) End stage renal disease Current Visit: Yes Status: Acute Plan to address problem: Hemodialysis tomorrow for UF and clearance Left AVF functional No acute indication for HD today No heparin with HD Strict I&O Obtain daily weights Renal diet (3) Anemia in chronic kidney disease (CKD) Current Visit: Yes Status: Acute Qualifiers: Chronic kidney disease stage: C Plan to address problem: Outpatient Surgical evaluation is planned for Right hemicolectomy next week as per GI Epogen 10,000 units with HD (4) Lower GI bleed Current Visit: Yes Status: Acute Plan to address problem: Outpatient Surgical evaluation is planned for Right hemicolectomy next week as per GI (5) Hypertensive CKD (chronic kidney disease) Current Visit: Yes Status: Acute Plan to address problem: Blood pressures are stable. Continue on anti-hypertensive agents Subjective Date of service: 08/10/16 Principal diagnosis: ESRD Interval history: Patient seen lying in bed. Awake and alert. Objective - Vital Signs Vital signs: Vital Signs - 12hr 08/09/16 08/09/16 08/10/16 22:00 22:22 01:05 Temperature 98.1 F Pulse Rate 77 80 Pulse Rate [ Left] Pulse Rate [ 74 Right Radial] Respiratory 20 Rate Blood Pressure 140/62 Blood Pressure 147/63 [Right Arm] O2 Sat by Pulse 98 Oximetry 08/10/16 08/10/16 06:00 09:04 Temperature 97.8 F 98.5 F Pulse Rate Pulse Rate [ 63 Left] Pulse Rate [ 73 Right Radial] Respiratory 18 Rate Blood Pressure Blood Pressure 129/76 157/67 [Right Arm] O2 Sat by Pulse 98 Oximetry - General Appearance General appearance: well-developed, well-nourished, appears stated age EENT: ATNC, PERRL, hearing intact, vision intact Neck: no JVD, supple Respiratory: Present: Clear to Ascultation Cardiology: regular, S1S2 Gastrointestinal: normoactive bowel sounds Neurologic: alert and oriented x3 Musculoskeletal: other (Left AVF has positive bruit and thrill) - Lab 08/10/16 06:53 08/09/16 06:04 Most recent lab results Calcium 7.8 mg/dL (8.4-10.2) L 08/09/16 06:04 Phosphorus 3.70 mg/dL (2.5-4.5) 08/09/16 06:04
--- NOTE | 2016-08-10 09:30 | Discharge Summary ---
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 Patient was found to have EKG and cardiac Enzymes That Were within Normal Limits. Patient Underwent Stress Thallium Which Was Found to Be Negative As Well. However, during her hospital stay, patient developed complications with rectal bleeding. Patient has had a recent GI workup on the week of 07/29/2016 at [facility] for anemia by Dr. Bills. EGD revealed esophagitis and a small hiatal hernia. Colonoscopy revealed brown diverticulosis, lipoma, small ascending polyp removed, and one 4 cm ascending polyp with a broad base that was unable to be removed. The large polyp was biopsied and marked with Libertad ink. Pathology showed one polyp to be tubular adenoma and the other tubulovillous adenoma. Patient is scheduled for a hemicolectomy at [facility] next week. Patient was seen by GI consultation who recommended monitoring of CBC and ifby Dr. Bills. EGD revealed esophagitis and a small hiatal hernia. Colonoscopy revealed brown diverticulosis, lipoma, small ascending polyp removed, and one 4 cm ascending polyp with a broad base that was unable to be removed. The large polyp was biopsied and marked with Libertad ink. Pathology showed one polyp to be tubular adenoma and the other tubulovillous adenoma. Patient is scheduled for a hemicolectomy at [facility] next week. Gastroenterology was consulted and opted for conservative management with monitoring H&H. GI felt if the pt. continued to have active bleeding they would proceed with colonoscopy. Etiology is felt to have been diverticular or post polypectomy from 07/29/16. Patient received transfusion in hemodialysis and H&H remained stable. No further episodes of hematochezia. GI felt patient could be discharged with plans for surgical evaluation next week for elective right hemicolectomy. Dedicated discharge time 35 minutes. Disposition: DC-01 TO HOME OR SELFCARE Time spent for discharge: 35 Core Measure Documentation - Palliative Care Palliative Care/ Comfort Measures: Not Applicable - Core Measures Any of the following diagnoses?: none Exam - Constitutional Vitals: Temp Pulse Resp BP Pulse Ox 98.5 F 73 18 157/67 98 08/10/16 09:04 08/10/16 09:14 08/10/16 09:04 08/10/16 09:14 08/10/16 09:04 General appearance: Present: no acute distress, well-nourished - EENT Eyes: Present: PERRL ENT: hearing intact, clear oral mucosa - Neck Neck: Present: supple, normal ROM - Respiratory Respiratory effort: normal Respiratory: bilateral: CTA - Cardiovascular Heart Sounds: Present: S1 & S2. Absent: rub, click - Extremities Extremities: pulses symmetrical, No edema Peripheral Pulses: within normal limits - Abdominal General gastrointestinal: Present: soft, non-tender, non-distended, normal bowel sounds Female genitourinary: Present: normal - Integumentary Integumentary: Present: clear, warm, dry - Musculoskeletal Musculoskeletal: gait normal, strength equal bilaterally - Psychiatric Psychiatric: appropriate mood/affect, intact judgment & insight - Neurologic Neurologic: CNII-XII intact, moves all extremities Plan Activity: no restrictions Weight Bearing Status: Full Weight Bearing Diet: renal Follow up with: PRIMARY CARE, [Primary Care Provider] - 3-5 Days TEREZA YAÑEZ MD [Staff Physician] - 7 Days ESTELLA HERNANDEZ MD [Staff Physician] - 7 Days Prescriptions: Calcium Carbonate [Calcium] 500 mg PO DAILY #30 tablet Clonidine HCl [Kapvay] 0.1 mg PO BID #60 tab.er.12h Ferrous Sulfate [Feosol 325 MG tab] 325 mg PO TID #90 tablet Fluticasone [Flonase] 1 spray NS QDAY #30 bottle hydrALAZINE [Apresoline TAB] 100 mg PO TID #90 tab Loratadine [Claritin] 10 mg PO DAILY #30 tablet Metoprolol [Lopressor TAB] 50 mg PO BID #60 tablet oxyCODONE /ACETAMINOPHEN [Percocet 5/325 mg] 1 tab PO Q4H PRN #15 tablet PRN Reason: Pain, Moderate (4-6) Pantoprazole [Protonix TAB] 40 mg PO QDAY #30 tablet
[2016-08-10 10:18] LABS: BUN/Creatinine Ratio 5.23; Calcium 7.7 mg/dL (8.4-10.2); Chloride 97.6 mmol/L (98-107); Phosphorous 3.8 mg/dL (2.5-4.5)
--- NOTE | 2016-08-10 12:14 | Progress Note ---
Assessment and Plan Chest pain, atypical no ischemia, EF 59% on MPI this admission Acute GI bleed s/p blood transfusion End-stage renal disease on HD Hypertension Conservative cardiac management. Subjective Date of service: 08/10/16 Principal diagnosis: ESRD Interval history: Patient denies chest pain and shortness. Objective Vital Signs Temp Pulse Pulse Pulse Pulse Resp BP 08/10/16 09:14 73 157/67 08/10/16 09:13 73 157/67 08/10/16 09:04 98.5 F 73 18 08/10/16 06:00 97.8 F 63 08/10/16 01:05 98.1 F 74 20 08/09/16 22:22 80 140/62 08/09/16 22:00 77 08/09/16 20:46 98.5 F 78 18 08/09/16 17:05 99.8 F H 75 18 08/09/16 13:10 97.5 F L 75 18 BP Pulse Ox 08/10/16 09:14 08/10/16 09:13 08/10/16 09:04 157/67 98 08/10/16 06:00 129/76 08/10/16 01:05 147/63 98 08/09/16 22:22 08/09/16 22:00 08/09/16 20:46 134/61 100 08/09/16 17:05 143/66 100 08/09/16 13:10 115/55 99 - Physical Examination General: No Apparent Distress HEENT: Positive: PERRL Neck: Positive: trachea midline Cardiac: Positive: Reg Rate and Rhythm Lungs: Positive: Decreased Breath Sounds Neuro: Positive: Grossly Intact Extremities: Absent: edema - Labs and Meds CBC 08/10/16 Range/Units 06:53 WBC 7.5 (4.5-11.0) K/mm3 RBC 3.04 L (3.65-5.03) M/mm3 Hgb 8.3 L (10.1-14.3) gm/dl Hct 25.7 L (30.3-42.9) % Plt Count 219 (140-440) K/mm3 Lymph # 0.8 L (1.2-5.4) K/mm3 [place] # 0.7 (0.0-0.8) K/mm3 Eos # 0.3 (0.0-0.4) K/mm3 Baso # 0.0 (0.0-0.1) K/mm3 Comprehensive Metabolic Panel 08/10/16 Range/Units 06:53 Sodium 137 (137-145) mmol/L Potassium 4.0 (3.6-5.0) mmol/L Chloride 97.6 L (98-107) mmol/L Carbon Dioxide 25 (22-30) mmol/L BUN 33 H (7-17) mg/dL Creatinine 6.3 H (0.7-1.2) mg/dL Glucose 95 (65-100) mg/dL Calcium 7.7 L (8.4-10.2) mg/dL - Imaging and Cardiology EKG: image reviewed (No acute findings)
== END 2016-08-10 12:16 | disposition home or self-care (01) | DRG 377 ==
LOC: ED 21:34 → 4A 08-06 08:09
PROVIDERS: ADMIT Hospitalist; ATTEND Hospitalist
PROC: 30233N1 Transfusion of Nonautologous Red Blood Cells into Peripheral Vein, Percutaneous Approach (ICD-10-PCS; principal; 2016-08-06)
PROC: 5A1D60Z (ICD-10-PCS; 2016-08-06)
DX: K57.91 Diverticulosis of intestine, part unspecified, without perforation or abscess with bleeding (principal); N18.6 End stage renal disease; E87.1 Hypo-osmolality and hyponatremia; I12.0 Hypertensive chronic kidney disease with stage 5 chronic kidney disease or end stage renal disease; N17.9 Acute kidney failure, unspecified; R07.9 Chest pain, unspecified; D63.1 Anemia in chronic kidney disease; K44.9 Diaphragmatic hernia without obstruction or gangrene; Z90.710 Acquired absence of both cervix and uterus; Z80.9 Family history of malignant neoplasm, unspecified; Z83.3 Family history of diabetes mellitus; Z99.2 Dependence on renal dialysis; Z82.49 Family history of ischemic heart disease and other diseases of the circulatory system
CPT/HCPCS: 36415; 36430; 71010; 78452; 80048; 82550; 82553; 82962; 84100; 84484; 85014; 85018; 85025; 85610; 85730; 86850; 86900; 86901; 86920; 93005; 93010; 93017; 96374; A9502; J1644; J2785; J7030; J7040; P9016